=== PATIENT | male | born 1935 | race Caucasian/White ===

== ENCOUNTER → 2017-10-08 13:13 | Outpatient (CLI) | payer MEDICARE, SELFPAY ==
--- NOTE | 2017-10-08 13:19 | XR_ITS ---
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 The left hip arthroplasty is more superior than normal with acute angle of the acetabular cup. Lucency is noted along the peripheral aspect of the acetabular cup similar to the previous exam. No acute fracture or dislocation is evident. There is cortical thickening of the acetabular region as well as the superior and inferior pubic rami from previous fractures. No acute fracture or dislocation is evident. IMPRESSION: Status post total hip replacement with chronic changes with healing fracture of the superior pubic ramus and chronic lucency surrounding the left acetabular cup. No acute finding.
--- NOTE | 2017-10-08 13:19 | XR_ITS ---
XR knee LT 4V HISTORY: ITS.REASON: Left knee pain ORDERING PHYSICIAN: Satinder Barriga MD PATIENT AGE: 82 years COMPARISON: 12/28/2014 FINDINGS: Severe osteoarthritic changes are present involving the lateral compartment and patellofemoral joint with decrease in joint space osteosclerosis and osteophyte formation. There are some subcortical cystic changes of the lateral tibial plateau. No fracture or dislocation. IMPRESSION: Severe osteoarthritis of the left knee slightly worse when compared to the previous exam
--- NOTE | 2017-10-08 13:19 | XR_ITS ---
XR knee RT 2V HISTORY: Follow-up knee replacement ITS.REASON: RT TKA 2012 ORDERING PHYSICIAN: Satinder Barriga MD PATIENT AGE: 82 years COMPARISON: 12/28/2014 FINDINGS: Status post total knee arthroplasty which is in good alignment. There is some minimal concavity of the cortex along the distal femur anteriorly likely similar to 12/28/2014. IMPRESSION: Status post total knee arthroplasty with good alignment and no significant change.
== END ==
PROVIDERS: PCP Family Medicine; Visit Provider Orthopaedic Surgery
DX: M25.552 Pain in left hip (principal); M17.12 Unilateral primary osteoarthritis, left knee; Z96.651 Presence of right artificial knee joint
CPT/HCPCS: 73502; 73560; 73564

== ENCOUNTER → 2017-10-30 12:29 | Outpatient (CLI) | payer MEDICARE, SELFPAY ==
--- NOTE | 2017-10-30 12:33 | MR_ITS ---
MR knee LT wo con HISTORY: Left knee pain with swelling ITS.REASON: Possible surgical candidate ORDERING PHYSICIAN: Satinder Barriga MD PATIENT AGE: 82 years COMPARISON: 10/08/2017 TECHNIQUE: Standard multiplanar multiecho sequences are performed without contrast. FINDINGS: Injury cruciate ligament is not identified in normal position consistent with tear of the ACL. T2 hypointensity is present along the posterior aspect of the lateral compartment medially and may be related to part of the torn ACL. The PCL is intact. The collateral ligaments have an unremarkable appearance. The patellar tendon and quadriceps tendon appear intact. A nondisplaced horizontal tear involves the posterior horn of the medial meniscus. Complex abnormal signal intensity involves the anterior and posterior horn of the medial meniscus consistent with complex tear. There is an area of decreased T1 and T2 signal along the central aspect of the lateral compartment. This could be related to a flipped meniscus or part of the torn ACL. There are severe osteoarthritic changes of the lateral compartment and patellofemoral joint with moderate osteophytes at the posterior patella. There is loss of the patellar cartilage. There is a small knee joint effusion with a Chery's cyst also noted measuring 3 cm. Subarticular cystic changes involve the lateral femoral condyle and lateral tibial plateau with decrease T1 and slight increased T2 signal involving the lateral tibial plateau subarticular surface suggesting osteonecrosis. No fracture or dislocation. IMPRESSION: 1. Tear of the ACL. 2. Complex tear of both anterior and posterior horn of the medial meniscus with possible flipped posterior meniscal fragment. 3. Severe osteoarthritis of the lateral compartment and patellofemoral joint with knee joint effusion. 4. Bone marrow edema of the lateral tibial plateau which could be a result of the arthritis versus osteochondrosis
== END ==
PROVIDERS: Family Provider Family Medicine; PCP Family Medicine; Visit Provider Orthopaedic Surgery
DX: M17.12 Unilateral primary osteoarthritis, left knee (principal)
CPT/HCPCS: 73721

== ENCOUNTER 2023-09-26 07:01 | Outpatient (CLI) | payer MEDICARE, SELFPAY ==
--- NOTE | 2023-09-26 07:10 | CT_ITS ---
FINAL REPORT TECHNIQUE: Axial images through the abdomen and pelvis were performed without contrast. This study was performed with techniques to keep radiation doses as low as reasonably achievable, (ALARA). Individualized dose reduction techniques using automated exposure control or adjustment of mA and/or kV according to the patient's size were employed. CLINICAL HISTORY: PELVIC AND ABD PAIN, FINDINGS: ABDOMEN: There is bibasilar atelectasis or scar. The heart size is normal. Limited images of the liver are unremarkable. The patient is status post cholecystectomy. The spleen is normal. No adrenal mass is identified. The aorta is normal in caliber. There is no significant free fluid or adenopathy. There are small bilateral nonobstructing renal stones, largest on the left measures 3 mm. There is no hydronephrosis. There is a large midline abdominal wall hernia containing multiple unobstructed small bowel loops and colon. There are postoperative changes in the right colon. PELVIS: The appendix is not identified. The urinary bladder is unremarkable. There is no significant free fluid or adenopathy. Bilateral hip arthroplasties are identified. IMPRESSION: Large midline abdominal wall hernia containing multiple unobstructed small bowel loops and colon. Bilateral nephrolithiasis. Reviewed, Interpreted and Dictated by Edgardo Allison III, MD Transcribed by Amy Cruz Authenticated and [facility]
== END 2023-09-26 23:59 ==
PROVIDERS: PCP Family Medicine; Visit Provider Family Medicine
DX: R10.30 Lower abdominal pain, unspecified (principal); R10.2 Pelvic and perineal pain
CPT/HCPCS: 74176

== ENCOUNTER 2023-10-13 13:18 | Outpatient (CLI) | payer MEDICARE, SELFPAY ==
[2023-10-13 13:45] LABS: Basophils % 0.5 % (0.1-2.0); Eosinophils # 0.1 K/mm3 (0.0-0.4); Eosinophils % 1.1 % (0.1-12.0); Hematocrit 38.1 % (42.0-52.0); Lymphocytes # 1.2 K/mm3 (0.7-4.5); Lymphocytes % 16.5 % (10-50); Mean Corpuscular HGB Conc 31.4 g/dL (31.8-35.4); Mean Corpuscular Hemoglobin 28.7 pg (27.0-31.2); Mean Corpuscular Volume 91.6 fl (80-94); Mean Platelet Volume 8.3 fl (7.4-10.4); Monocytes # 0.4 K/mm3 (0.1-1.0); Monocytes % 5.3 % (1.7-9.3); Neutrophils # 5.7 K/mm3 (1.8-7.8); Neutrophils % 76.6 % (37.0-80.0); Platelet Count 177 K/mm3 (142-424); Red Blood Count 4.16 M/mm3 (4.60-6.20); Red Cell Distribution Width 14.8 % (11.5-17.5); White Blood Count 7.4 K/mm3 (4.8-10.8)
[2023-10-13 14:05] LABS: Chloride 99 mmol/L (98-107)
[2023-10-13 14:06] LABS: Potassium 4.3 mmoL/L (3.5-5.1); Sodium 134 mmol/L (136-145)
[2023-10-13 14:09] LABS: Anion Gap 6.3 mEq/L (5-15); Blood Urea Nitrogen 21 mg/dl (9-20); Calcium 9.7 mg/dl (8.4-10.2); Carbon Dioxide 33 mmol/L (22.0-30.0); Estimated Glomerular Filt Rate 71 ml/min (>60); GFR (African American) 86 ML/MIN (>60); Glucose 145 mg/dl (74-100)
[2023-10-13 14:18] LABS: NT Pro Brain Natriuretic Pep. 2020 pg/mL (0-450)
== END 2023-10-13 23:59 ==
LOC: LAB.DROPOF 13:19
PROVIDERS: PCP Family Medicine; Visit Provider Family Medicine
DX: I25.10 Atherosclerotic heart disease of native coronary artery without angina pectoris (principal); I50.9 Heart failure, unspecified
CPT/HCPCS: 80048; 83880; 85025

== ENCOUNTER 2023-10-15 20:23 | Inpatient (IN) | payer OTHER, MEDICARE, SELFPAY ==
[2023-10-15] VITALS (10 sets, daily range): BP systolic 138–158; BP diastolic 74–86; PULSE 89–101; RESP 16–18; TEMP 36.9; O2SAT 91–98; BMI 46.7; BMI 45.8
--- NOTE | 2023-10-15 20:05 | PC.NURSE ---
Report from Louann, nurse from [place] who reports 88 M coming in for increased SOA since Saturday. Patient wears 3L/NC and had saturation of 80% with that. Patient was at baseline on Saturday, walking/talking, but today he is so weak he can't even hold a fork. Nurse reports CXR on Saturday showed infiltrates, so he was given 30mg Lasix x3 days. Not better today, so MD at [facility] prescribed Levaquin to start today.
--- NOTE | 2023-10-15 20:23 | XR_ITS ---
PROCEDURE INFORMATION: Exam: XR Chest Exam date and time: 10/15/2023 8:30 PM Age: 88 years old Clinical indication: Patient HX: Severe shortness of breath, hypoxemia. ; Additional info: SOA, hypoxemia TECHNIQUE: Imaging protocol: Radiologic exam of the chest. Views: 1 view. COMPARISON: No relevant prior studies available. FINDINGS: Lungs: Bibasilar patchy parenchymal opacities could reflect infection, atelectasis or scarring. There is mild prominence of the perihilar lung markings which could be related to crowding. Pleural spaces: No large effusion or pneumothorax. Heart/Mediastinum: No evidence of mediastinal widening or cardiac silhouette enlargement; the mediastinum and heart appear within normal limits for contour and size. Bones/joints: No evidence of acute osseous abnormalities within the visualized portions of the thoracic spine and ribs. Osseous structures appear appropriate for patient age. Other findings: There is a low level of inspiration. IMPRESSION: Bibasilar patchy parenchymal opacities could reflect infection, atelectasis or scarring.
--- NOTE | 2023-10-15 20:32 | ECG_ITS ---
APPROVED REPORT Exam: Resting ECG HR:100 bpm ECG Measurements Heart Rate 100 AXES QRSd 153 QRS -43 QT 348 T -21 QTc 405 Conclusion ATRIAL FIBRILLATION WITH RAPID VENTRICULAR RESPONSE LEFT AXIS DEVIATION [QRS AXIS < -30] RIGHT BUNDLE BRANCH BLOCK [120+ ms QRS DURATION, UPRIGHT V1, 40+ ms S IN I/aVL/V4/V5/V6] Electronically signed by : KISHA CAMEJO, 10/15/2023 22:17:53
[2023-10-15 20:38] LABS: Lactate Venous 1.7 mmol/L (0.4-2.0); VBG Base Excess 2.8 mmol/L (-2.4-2.3); VBG HCO3 28.6 mmol/L (23-30); VBG Oxygen Saturation 81.5 % (50-70); VBG PCO2 54.2 mmol/L (35-51); VBG PH 7.34 mmol/L (7.31-7.41); VBG PO2 45.6 mmol/L (28-40); VBG Total CO2 30.2 mmol/L (23-27)
[2023-10-15 20:38] LABS: Basophils % 0.6 % (0.1-2.0); Eosinophils # 0.2 K/mm3 (0.0-0.4); Eosinophils % 3.1 % (0.1-12.0); Hematocrit 39.2 % (42.0-52.0); Hemoglobin 12.4 g/dL (14.1-18.0); Lymphocytes # 1.4 K/mm3 (0.7-4.5); Lymphocytes % 21.3 % (10-50); Mean Corpuscular HGB Conc 31.7 g/dL (31.8-35.4); Mean Corpuscular Hemoglobin 28.9 pg (27.0-31.2); Mean Platelet Volume 8.4 fl (7.4-10.4); Monocytes # 0.4 K/mm3 (0.1-1.0); Monocytes % 5.8 % (1.7-9.3); Neutrophils # 4.5 K/mm3 (1.8-7.8); Neutrophils % 69.3 % (37.0-80.0); Platelet Count 186 K/mm3 (142-424); Red Blood Count 4.31 M/mm3 (4.60-6.20); Red Cell Distribution Width 14.7 % (11.5-17.5); White Blood Count 6.5 K/mm3 (4.8-10.8)
--- NOTE | 2023-10-15 20:47 | ED_ITS ---
Discharge Plan Disposition Patient Disposition: Admitted Clinical Impressions Clinical Impression: Pneumonia, Generalized weakness, Declining functional status Discharge ED Provider: Sukhdev Morales General Chief Complaint: Shortness of Breath/Dyspnea Stated Complaint: Shortness of Air. Weakness Time Seen by Provider: 10/15/23 20:22 Mode of Arrival: EMS Source of Information: EMS Limitations: Physical Limitations Description of Symptoms (Recalled from ER Triage Doc. by RN): 88 M presents via EMS from [place] with worsening c/o of SOA. Patient wears 3L/NC normally, but had o2 saturation of 80% on EMS arrival. Patient arrives on NRB with saturation 95%-97%. Patient is a/o x3. History of Present Illness HPI narrative: This is an 88-year-old male history of hypertension, hyperlipidemia, c/o 3 L nasal cannula CHF, hypothyroidism, A-fib on warfarin presenting with shortness of breath and weakness. Patient has been developing these symptoms over the past 2 or 3 days. Was initially diagnosed with COPD exacerbation, getting worse at half-way, was put on Levaquin with first dose today, but per EMS, patient was so weak he was unable to feed himself, so EMS was called. On EMS arrival, patient was around 80% on his home oxygen. Put on nonrebreather with return to low to mid 90s. Answered questions, alert and oriented. On arrival, patient complaining of shortness of breath, but denies chest pain, nausea or vomiting, fevers or chills, abdominal pain, or any other complaints at this time Please note that above description of symptoms, in this electronic medical record under categorization of recalled from ER triage doctor by RN are reflective of an initial nursing assessment, however, is not reflective of my full history and physical exam that was personally taken and clarified. Consequentially, this preceding description of symptoms, which may include the patient's categorized chief complaint in the EMR, do not reflect my personal clinical impression, and the ultimate description of history of present illness and patient stated complaints should be deferred to this section of the note. Unless stated otherwise or congruent with this section of the note, additional signs, symptoms, or incongruence should be interpreted as inaccurate with my clinical impression. Related Data Home Medications Medication Instructions Recorded Confirmed acetaminophen 500 mg tablet 500 mg PO Q6H PRN CHRONIC PAIN 10/15/23 10/15/23 aripiprazole 2 mg tablet 2 mg PO DAILY 10/15/23 10/15/23 ascorbic acid (vitamin C) 1,000 mg 1 g PO HS 10/15/23 10/15/23 capsule aspirin 81 mg chewable tablet 81 mg PO DAILY 10/15/23 10/15/23 bumetanide 1 mg tablet 1 mg PO DAILY 10/15/23 10/15/23 bupropion HCl 300 mg 24 hr tablet, 300 mg PO DAILY Depression 10/15/23 10/15/23 extended release (Wellbutrin XL) digoxin 125 mcg (0.125 mg) tablet 125 mcg PO DAILY 10/15/23 10/15/23 duloxetine 60 mg capsule,delayed 60 mg PO BID 10/15/23 10/15/23 release esomeprazole magnesium 40 mg 40 mg PO DAILY 10/15/23 10/15/23 capsule,delayed release ferrous sulfate 325 mg (65 mg 325 mg PO DAILY 10/15/23 10/15/23 iron) tablet folic acid 1 mg tablet 1 mg PO DAILY 10/15/23 10/15/23 furosemide 40 mg tablet (Lasix) 40 mg PO DAILY 10/15/23 10/15/23 lactulose 10 gram/15 mL oral 10 g PO BID 10/15/23 10/15/23 solution levofloxacin 500 mg tablet 500 mg PO DAILY 10/15/23 10/15/23 metoprolol tartrate 25 mg tablet 25 mg PO DAILY 10/15/23 10/15/23 morphine 60 mg tablet,extended 60 mg PO Q12H 10/15/23 10/15/23 release oxycodone-acetaminophen 10 mg-325 1 tab PO Q8H PRN CHRONIC PAIN 10/15/23 10/15/23 mg tablet (Percocet) pravastatin 40 mg tablet 40 mg PO HS 10/15/23 10/15/23 ropinirole 0.5 mg tablet 0.5 mg PO HS 10/15/23 10/15/23 silodosin 8 mg capsule 8 mg PO DAILY 10/15/23 10/15/23 tolterodine 2 mg tablet 2 mg PO DAILY 10/15/23 10/15/23 warfarin 4 mg tablet 4 mg PO CONSULT PHARMACY 10/15/23 10/15/23 warfarin 5 mg tablet 5 mg PO CONSULT PHARMACY 10/15/23 10/15/23 Allergies Allergy/AdvReac Type Severity Reaction Status Date / Time penicillin V Allergy Unknown I-RASH Verified 01/29/18 10:59 promethazine Allergy Unknown Verified 01/29/18 10:59 PFSH [facility] Disclaimer: The information contained in this section may have been updated after the patient was seen, as this information can be updated by other users. Medical History (Updated 10/15/23 @ 22:02 by Sukhdev Morales MD) Difficulty in walking, not elsewhere classified Muscle weakness (generalized) Dependence on supplemental oxygen Body mass index [BMI] 45.0-49.9, adult Weakness Restless legs syndrome Major depressive disorder, single episode, unspecified Chronic pain syndrome Obstructive sleep apnea (adult) (pediatric) Unspecified abdominal hernia without obstruction or gangrene Morbid (severe) obesity due to excess calories Anemia, unspecified Chronic obstructive pulmonary disease, unspecified Cardiomegaly Chronic atrial fibrillation, unspecified Atherosclerotic heart disease of [place] coronary artery without angina pectoris Heart failure, unspecified Social History (Updated 10/15/23 @ 21:34 by Riley Rosenthal RN) Smoking Status: Never smoker alcohol intake: never current occupational status: retired Travel in the last 8 weeks: None ROS Obtained: Yes All systems reviewed & no additional complaints except as documented Physical Exam General General appearance: alert, in distress and obese ENT ENT exam: Present mucous membranes dry Neck Neck exam: Present trachea midline and other (Unable to evaluate for JVD given habitus) Chest Chest inspection: Present normal inspection and symmetric chest wall rise; Absent tenderness Respiratory Respiratory exam: Present respiratory distress, wheezes (Diffuse, bilateral. Decreased breath sounds in bilateral lower lung sweeney, left greater than right.), accessory muscle use and other (Eating and); Absent stridor or prolonged expiratory phase Cardiovascular Cardiovascular exam: Present tachycardia and irregular rhythm Abdominal Exam Abdominal exam: Present soft, distention and hernia; Absent tenderness, guarding, rebound or rigidity Extremities Exam Extremities exam: Present edema (With chronic skin changes) Neurological Exam Neurological exam: Present alert, oriented X3 and CN II-XII intact Skin Skin exam: Present warm and dry; Absent cyanosis, diaphoresis or pallor HEART Score HEART Score HEART Score assessment performed?: Yes History (anamnesis): Slightly suspicious ECG: Non-specific disturbance Age: >65 years Risk factors: 3 or more risk factors Troponin: </= normal limit HEART Score: 5 Procedures Limited Ultrasound Indication:: Limited cardiac ultrasound Indication: AMS, shortness of breath Identified cardiac views: -Cardiac parasternal long axis -Cardiac parasternal short axis Findings: -Cardiac activity present -Gross wall motion normal, reduced -Pericardial effusion absent -Right heart strain absent Impression: -Mildly hypodynamic heart. Grossly reduced EF. Images were saved to permanent archive The study was technically adequate CPT: 74503 This study was performed by fl, and I personally interpreted all images/videos. Based on my clinical judgement, these images were adequate and did not necessitate further imaging. Views:: Limited lung ultrasound A focused ultrasound exam of the pleural spaces was performed to evaluate for pneumothorax, pulmonary edema, pleural effusion and/or consolidation. The ultrasound was performed with the following indications, as noted in the H&P: Shortness of breath, hypoxemia, weakness Identified structures: Bilateral thoracic cavities were examined. Findings: Lung sliding: -Present B-lines: -Absent on left -Absent on right Pleural effusion: -Absent bilaterally Consolidation: -Absent left -Absent right Impression: - Pneumothorax absent - Pleural effusion absent - B-lines present bilaterally, less than 2 per rib space. Within normal limits - Consolidation absent Images were saved to permanent archive The study was technically adequate CPT 41931-28 This study was performed by fl, and I personally interpreted all images/videos. Based on my clinical judgement, these images were adequate and did not necessitate further imaging. Critical Care Critical Care Time Critical Care Time: Yes (CV) Attestation: On 10/15/23, the high probability of a clinically significant, sudden or life threatening deterioration of the following system(s) required my full and direct attention, intervention and personal management. The time I documented below is in addition to time spent performing reported procedures but includes the following listed in this critical care notation. Total Time Total Critical Care Time: 45 Medical Decision Making Medical Records Medical records reviewed: Yes I reviewed the patient's medical records. Donovan Inquiry Pt receiving controlled substance: No Donovan was queried for this patient: No Vital Signs Vital Signs: 10/15/23 20:21 10/15/23 20:31 10/15/23 21:00 Temperature 98.5 F Temperature Source Axillary Pulse Rate 97 H 97 H Pulse Rate [Right] 101 H Respiratory Rate 18 18 17 Blood Pressure 151/75 H 145/79 H Blood Pressure [Left Arm] 158/78 H Blood Pressure Mean 98 88 Blood Pressure Mean [Left Arm] 104 Blood Pressure Source Blood Pressure Source [Left Arm] Automatic Cuff Blood Pressure Position Blood Pressure Position [Left Arm] Sitting 02 Sat by Pulse Oximetry 97 98 91 L Oxygen Delivery Method Non-Rebreather Non-Rebreather Nasal Cannula Oxygen Flow Rate (LPM) 15 10/15/23 21:15 10/15/23 21:30 10/15/23 21:45 Temperature Temperature Source Pulse Rate 92 H 90 89 Pulse Rate [Right] Respiratory Rate 16 16 17 Blood Pressure 138/74 138/74 141/83 H Blood Pressure [Left Arm] Blood Pressure Mean 85 87 92 Blood Pressure Mean [Left Arm] Blood Pressure Source Blood Pressure Source [Left Arm] Blood Pressure Position Blood Pressure Position [Left Arm] 02 Sat by Pulse Oximetry 93 L 93 L 97 Oxygen Delivery Method Nasal Cannula Nasal Cannula Aerosol Mask Oxygen Flow Rate (LPM) 10/15/23 21:54 10/15/23 22:10 10/15/23 22:11 Temperature 98.5 F Temperature Source Axillary Pulse Rate 91 H 93 H 93 H Pulse Rate [Right] Respiratory Rate 16 Blood Pressure 141/83 H Blood Pressure [Left Arm] Blood Pressure Mean Blood Pressure Mean [Left Arm] Blood Pressure Source Automatic Cuff Blood Pressure Source [Left Arm] Blood Pressure Position Sitting Blood Pressure Position [Left Arm] 02 Sat by Pulse Oximetry Oxygen Delivery Method Nasal Cannula Oxygen Flow Rate (LPM) 3 Lab Data Labs: Lab Results 10/15/23 20:27: WBC 6.5, RBC 4.31 L, Hgb 12.4 L, Hct 39.2 L, MCV 91.0, MCH 28.9, MCHC 31.7 L, RDW 14.7, Plt Count 186, MPV 8.4, Neut % (Auto) 69.3, Lymph % (Auto) 21.3, Stone % (Auto) 5.8, Eos % (Auto) 3.1, Baso % (Auto) 0.6, Neut # (Auto) 4.5, Lymph # (Auto) 1.4, Stone # (Auto) 0.4, Eos # (Auto) 0.2, Baso # (Auto) 0.0, PT 24.0 H, INR 2.35 H, Sodium 134 L, Potassium 3.8, Chloride 96 L, C arbon Dioxide 33 H, Anion Gap 8.8, BUN 26 H, Creatinine 1.20, Estimated Creat Clear 48, Estimated GFR 57 L, Est GFR ( Amer) 69, Glucose 156 H, Lactate 1.1, Calcium 9.1, Total Bilirubin 1.1, AST 29, ALT 22, Alkaline Phosphatase 101, Troponin I 0.02, NT-Pro-B Natriuret Pep 1510 H, Total Protein 7.3, Albumin 3.8, Globulin 3.5 H, Albumin/Globulin Ratio 1.1 10/15/23 20:36: VBG pH 7.34, VBG pCO2 54.2 H, VBG pO2 45.6 H, VBG HCO3 28.6, VBG Total CO2 30.2 H, VBG O2 Saturation 81.5 H, VBG Base Excess 2.8 H, VBG Lactic Acid 1.7 10/15/23 20:27 10/15/23 20:27 Response Orders (Tests/Meds): ED MEDICATIONS Generic Name Dose Route Start Last Admin Trade Name Freq PRN Reason Stop Dose Admin Acetaminophen 650 mg 10/15/23 21:36 Acetaminophen 325mg Tab PO 11/14/23 21:35 Q4HP PRN Fever or Mild Pain (1-3) Albuterol/Ipratropium 6 ml 10/15/23 21:33 10/15/23 22:10 Ipratropium/Albuterol 3 Ml Neb IH 10/15/23 21:34 6 ml ONCE ONE Administration Vancomycin HCl 2,250 mg/ 500 mls @ 166 mls/hr 10/15/23 20:45 10/15/23 20:56 Sodium Chloride IV 10/15/23 23:45 166 mls/hr ONCE ONE Administration Sodium Chloride 1,000 mls @ 75 mls/hr 10/15/23 21:45 10/15/23 21:53 Sod Chlor 0.9% 1000ml Bag IV 11/14/23 21:44 75 mls/hr .[id number] ANABEL Administration Levofloxacin/Dextrose 750 mg in 150 mls @ 100 mls/hr 10/16/23 09:45 Levofloxacin 750mg/150ml Premix IV 10/26/23 09:44 Q24H ANABEL Miscellaneous 1 each 10/15/23 20:30 10/15/23 20:56 Vancomycin Consult Request NOTAPPLIC 11/14/23 20:29 1 each CONSULT PHARMACY ANABEL Administration Morphine Sulfate 2 mg 10/15/23 21:36 Morphine 2mg/Ml Syringe IV 11/14/23 21:35 Q2HP PRN Severe Pain (7-10) Nicotine 21 mg 10/15/23 21:36 Nicotine 21mg/24hr Patch TD 11/14/23 21:35 DAILYP PRN Nicotine Cravings Ondansetron HCl 4 mg 10/15/23 21:36 Ondansetron 4mg/2ml Vial IV 11/14/23 21:35 Q8HP PRN Nausea Pantoprazole Sodium 40 mg 10/16/23 09:00 Pantoprazole 40mg Tablet PO 11/15/23 08:59 DAILY ANABEL Sodium Chloride 3 ml 10/15/23 21:40 Sodium Chloride 3% 15ml Neb IH 11/14/23 21:39 ONCE PRN INDUCE SPUTUM COLLECTION Discontinued Medications Generic Name Dose Route Start Last Admin Trade Name Freq PRN Reason Stop Dose Admin Furosemide 40 mg 10/15/23 20:23 10/15/23 21:03 Furosemide 40mg/4ml Vial IV 10/15/23 20:24 Not Given ONCE ONE Ceftriaxone Sodium 2 gm/ 100 mls @ 200 mls/hr 10/15/23 20:23 10/15/23 20:55 Sodium Chloride IV 10/15/23 20:52 200 mls/hr ONCE ONE Administration ORDERS Category Date Time Status CXR --portable [XR chest portable] Stat Exams 10/15/23 20:23 Completed POCUS Point of Care (ER Only) Stat Exams 10/15/23 20:25 Taken CBC w/Auto Diff [Complete Blood Count Auto Diff] Stat Lab 10/15/23 20:27 Completed CMP [Comprehensive Metabolic Panel] Stat Lab 10/15/23 20:27 Completed Complete Blood Count Auto Diff AMLAB Lab 10/16/23 06:00 Ordered Comprehensive Metabolic Panel AMLAB Lab 10/16/23 06:00 Ordered INR [Prothrombin Time INR] Stat Lab 10/15/23 20:27 Completed Lactic Acid Stat Lab 10/15/23 20:27 Completed Magnesium AMLAB Lab 10/16/23 06:00 Ordered NT Pro Brain Natriuretic Pep. Stat Lab 10/15/23 20:27 Completed Trop I [Troponin I] Stat Lab 10/15/23 20:27 Completed Troponin I Q3H Lab 10/15/23 23:30 Ordered Troponin I Q3H Lab 10/16/23 02:30 Ordered Blood Culture Stat Micro 10/15/23 20:51 Received VBG [Venous Blood Gas] Stat RT 10/15/23 20:36 Completed MDM Narrative Medical Decision Narrative: This is an 88-year-old male history of hypertension, hyperlipidemia, c/o 3 L nasal cannula CHF, hypothyroidism, A-fib on warfarin presenting with shortness of breath and weakness. Patient has been developing these symptoms over the past 2 or 3 days. Was initially diagnosed with COPD exacerbation, getting worse at half-way, was put on Levaquin with first dose today, but per EMS, patient was so weak he was unable to feed himself, so EMS was called. On EMS arrival, patient was around 80% on his home oxygen. Put on nonrebreather with return to low to mid 90s. Answered questions, alert and oriented. On arrival, patient complaining of shortness of breath, but denies chest pain, nausea or vomiting, fevers or chills, abdominal pain, or any other complaints at this time. It should be noted that this patient has multiple comorbidities, multiple of which are likely complicating care. History was obtained via conversation with patient, EMS. On arrival, patient hemodynamically stable, alert, oriented x4, GCS 15, moving all extremities spontaneously, pupils equal and reactive to light. Full physical exam performed and significant for patient appears to be in mild respiratory distress. Breathing 15 times a minute, but speaking in 2-3 word sentences. Lungs are diffusely wheezy bilaterally, decreased breath sounds in bilateral lower lung sweeney, left greater than right. Cardiac exam with no appreciable murmur, but patient is in A-fib with RVR. Pulses are equal and symmetric. Patient has lower extremity pitting edema with chronic overlying skin changes. Differential includes CHF exacerbation, pneumonia, sepsis, CAD, ACS, NH, pneumothorax, PE, among others. Patient was given empiric vancomycin and ceftriaxone for symptomatic management and correction of underlying abnormalities. Fluids were initially held given hypervolemic appearance. Workup independently interpreted and significant for no leukocytosis, stable hemoglobin and platelets within normal limits. INR 2.35. VBG with normal pH, lactate 1.7. Chemistry largely nonactionable, kidney function within normal limits, glucose 156. LFTs normal. Troponin negative, BNP elevated mildly at 1510, but has been higher in the past. Chest x-ray without obvious pulmonary edema or cardiovascular cause, but does have concern for early developing pneumonia. See radiology read for full review of final results. Independent interpretation of EKG shows A-fib with RVR. 100 bpm. Right bundle branch block with left axis deviation. Patient placed on continuous cardiac monitoring and continuous pulse ox with initial blood pressure 151/75, heart rate 98, saturation 91% on nonrebreather. Heart score 5. Hospital medicine was contacted after discussion with family. Family arrived shortly thereafter, states that patient has had steady functional decline over the past 5 or 6 days, which is acute on chronic for him functional decline since July when he had COVID. States that he has been getting worse and today, was unable to feed himself, which is abnormal for patient. This was due to weakness. Given patient presentation, workup, history, this most likely represents pneumonia and acute on chronic physical deconditioning, likely secondary to mild dehydration and infection. Because patient high risk for clinical decompensation, deemed appropriate for inpatient admission. Results were relayed to patient who voiced understanding and patient was agreeable to inpatient admission and management. Patient was admitted to the hospital for further definitive management.
[2023-10-15 20:48] LABS: Chloride 96 mmol/L (98-107); Potassium 3.8 mmoL/L (3.5-5.1); Sodium 134 mmol/L (136-145)
[2023-10-15 20:50] LABS: Alanine Aminotransferase 22 U/L (12-78); Aspartate Amino Transferase 29 U/L (17-59); Blood Urea Nitrogen 26 mg/dl (9-20); Creatinine Clearance Estimated 48 mL/min (50-200); Estimated Glomerular Filt Rate 57 ml/min (>60); GFR (African American) 69 ML/MIN (>60); Lactic Acid 1.1 mmol/L (0.7-2.1)
[2023-10-15 20:51] LABS: Albumin Level 3.8 g/dl (3.5-5.0); Albumin/Globulin Ratio 1.1 (1.1-1.8); Alkaline Phosphatase 101 U/L (38-126); Anion Gap 8.8 mEq/L (5-15); Bilirubin,Total 1.1 mg/dl (0.2-1.3); Calcium 9.1 mg/dl (8.4-10.2); Carbon Dioxide 33 mmol/L (22.0-30.0); Globulin 3.5 g/dL (1.3-3.2); Glucose 156 mg/dl (74-100); Total Protein,Serum 7.3 g/dl (6.3-8.2)
[2023-10-15] MEDS: CEFTRIAXONE SODIUM 2 GM in 0.9 % SODIUM CHLORIDE 100 ML IV (20:55)
[2023-10-15] MEDS: VANCOMYCIN CONSULT REQUEST 1 EACH NOTAPPLIC (20:56)
[2023-10-15] MEDS: VANCOMYCIN HCL 2,250 MG in 0.9 % SODIUM CHLORIDE 500 ML 166 MG IV (20:56)
[2023-10-15 21:01] LABS: NT Pro Brain Natriuretic Pep. 1510 pg/mL (0-450)
[2023-10-15 21:03] LABS: Troponin I 0.02 ng/ml (0.00-0.034)
--- NOTE | 2023-10-15 21:14 | PC.NURSE ---
family at bedside. rn at bedside hanging iv atb's
[2023-10-15 21:20] LABS: INR 2.35 (0.9-1.1)
--- NOTE | 2023-10-15 21:37 | PC.NURSE ---
House notified for admission
--- NOTE | 2023-10-15 21:38 | PC.NURSE ---
Lynette FRAME [employer]IPPER notified for breathing treatment
--- NOTE | 2023-10-15 21:40 | P.HP_ITS ---
History of Present Illness *Admission Date: 10/15/23 *Reason for visit:: SOB/ Hypoxia *History of present illness: This is an 88-year-old male PMHx hypertension, hyperlipidemia, COPD/CHF 3 L nasal cannula, hypothyroidism, A-fib on warfarin [facility] resident, brought in by EMS with shortness of breath and weakness. Patient has been developing these symptoms over the past 2 or 3 days. Was initially diagnosed with COPD exacerbation, getting worse at care home, was put on Levaquin with first dose today, but per EMS, patient was so weak he was unable to feed himself, so EMS was called. On EMS arrival, patient was around 80% on his home oxygen. Put on nonrebreather with return to low to mid 90s. Answered questions, alert and oriented. On arrival, patient complaining of shortness of breath, but denies chest pain, nausea or vomiting, fevers or chills, abdominal pain, or any other complaints at this time. Admitted for further treatment [facility] Disclaimer: The information contained in this section may have been updated after the patient was seen, as this information can be updated by other users. Medical History (Updated 10/16/23 @ 02:12 by Joaquim Cano APRN) Difficulty in walking, not elsewhere classified Muscle weakness (generalized) Dependence on supplemental oxygen Body mass index [BMI] 45.0-49.9, adult Weakness Restless legs syndrome Major depressive disorder, single episode, unspecified Chronic pain syndrome Obstructive sleep apnea (adult) (pediatric) Unspecified abdominal hernia without obstruction or gangrene Morbid (severe) obesity due to excess calories Anemia, unspecified Chronic obstructive pulmonary disease, unspecified Cardiomegaly Chronic atrial fibrillation, unspecified Atherosclerotic heart disease of [place] coronary artery without angina pectoris Heart failure, unspecified Social History (Updated 10/15/23 @ 23:21 by Nasrin Norwood RN) Smoking Status: Former smoker tobacco type: cigarettes packs per day: 1 smoking status start date: 1950 years smoked: 5 smoking status stop date: 1955 how long ago did patient quit smokin years ago alcohol intake: never current occupational status: retired Travel in the last 8 weeks: None Review of Systems Review of Systems Review of systems:: pertinent systems reviewed and negative unless documented below Meds Home Medications and Allergies Home Medications Medication Instructions Recorded Confirmed Type acetaminophen 500 mg tablet 500 mg PO Q6H PRN CHRONIC PAIN 10/15/23 10/15/23 History aripiprazole 2 mg tablet 2 mg PO DAILY 10/15/23 10/15/23 History ascorbic acid (vitamin C) 1,000 mg 1 g PO HS 10/15/23 10/15/23 History capsule aspirin 81 mg chewable tablet 81 mg PO DAILY 10/15/23 10/15/23 History bumetanide 1 mg tablet 1 mg PO DAILY 10/15/23 10/15/23 History bupropion HCl 300 mg 24 hr tablet, 300 mg PO DAILY 10/15/23 10/15/23 History extended release (Wellbutrin XL) digoxin 125 mcg (0.125 mg) tablet 125 mcg PO DAILY 10/15/23 10/15/23 History duloxetine 60 mg capsule,delayed 60 mg PO BID 10/15/23 10/15/23 History release esomeprazole magnesium 40 mg 40 mg PO DAILY 10/15/23 10/15/23 History capsule,delayed release ferrous sulfate 325 mg (65 mg 325 mg PO DAILY 10/15/23 10/15/23 History iron) tablet folic acid 1 mg tablet 1 mg PO DAILY 10/15/23 10/15/23 History furosemide 40 mg tablet (Lasix) 40 mg PO DAILY 10/15/23 10/15/23 History ipratropium 0.5 mg-albuterol 3 mg 3 ml inhalation Q6H 10/15/23 10/15/23 History (2.5 mg base)/3 mL nebulization soln lactulose 10 gram/15 mL oral 15 ml PO BID 10/15/23 10/16/23 History solution metoprolol succinate 25 mg capsule 25 mg PO DAILY 10/15/23 10/15/23 History sprinkle, ext. release 24 hr morphine 60 mg tablet,extended 60 mg PO Q12H 10/15/23 10/15/23 History release nystatin 100,000 unit/gram topical 1 applic topical BID 10/15/23 10/15/23 History powder oxycodone-acetaminophen 10 mg-325 1 tab PO Q8H PRN CHRONIC PAIN 10/15/23 10/15/23 History mg tablet (Percocet) pravastatin 40 mg tablet 40 mg PO HS 10/15/23 10/15/23 History ropinirole 0.5 mg tablet 0.5 mg PO HS 10/15/23 10/15/23 History silodosin 8 mg capsule 8 mg PO HS 10/15/23 10/15/23 History tolterodine 2 mg tablet 2 mg PO DAILY 10/15/23 10/15/23 History warfarin 4 mg tablet 4 mg PO SUTUTHSA 10/15/23 10/16/23 History warfarin 5 mg tablet 5 mg PO MOWEFR 10/15/23 10/16/23 History levofloxacin 500 mg tablet 500 mg PO DAILY 10/16/23 10/16/23 History mineral oil-hydrophil petrolat 1 applic topical BID 10/16/23 10/16/23 History topical ointment (Aquaphor topical ointment) New Prescriptions to Start Prescriptions: Allergies Allergy/AdvReac Type Severity Reaction Status Date / Time penicillin V Allergy Unknown I-RASH Verified 01/29/18 10:59 promethazine Allergy Unknown Verified 01/29/18 10:59 Exam Data for Last 24 hours Vital signs and Labs for Last 24 Hours: Temp Pulse Resp BP Pulse Ox O2 Del Method O2 Flow Rate 98.5 F 92 H 16 138/74 93 L Nasal Cannula 15 10/15/23 20:21 10/15/23 21:15 10/15/23 21:15 10/15/23 21:15 10/15/23 21:15 10/15/23 21:15 10/15/23 20:21 FiO2 100 10/15/23 20:21 Laboratory Results - last 24 hr 10/15/23 20:27: WBC 6.5, RBC 4.31 L, Hgb 12.4 L, Hct 39.2 L, MCV 91.0, MCH 28.9, MCHC 31.7 L, RDW 14.7, Plt Count 186, MPV 8.4, Neut % (Auto) 69.3, Lymph % (Auto) 21.3, [place] % (Auto) 5.8, Eos % (Auto) 3.1, Baso % (Auto) 0.6, Neut # (Auto) 4.5, Lymph # (Auto) 1.4, [place] # (Auto) 0.4, Eos # (Auto) 0.2, Baso # (Auto) 0.0, PT 24.0 H, INR 2.35 H, Sodium 134 L, Potassium 3.8, Chloride 96 L, Carbon Dioxide 33 H, Anion Gap 8.8, BUN 26 H, Creatinine 1.20, Estimated Creat Clear 48, Estimated GFR 57 L, Est GFR ( Amer) 69, Glucose 156 H, Lactate 1.1, Calcium 9.1, Total Bilirubin 1.1, AST 29, ALT 22, Alkaline Phosphatase 101, Troponin I 0.02, NT-Pro-B Natriuret Pep 1510 H, Total Protein 7.3, Albumin 3.8, Globulin 3.5 H, Albumin/Globulin Ratio 1.1 10/15/23 20:36: VBG pH 7.34, VBG pCO2 54.2 H, VBG pO2 45.6 H, VBG HCO3 28.6, VBG Total CO2 30.2 H, VBG O2 Saturation 81.5 H, VBG Base Excess 2.8 H, VBG Lactic Acid 1.7 I & O for Last 24 hours: Intake & Output 10/12/23 10/13/23 10/14/23 10/15/23 23:59 23:59 23:59 23:59 Weight 156.535 kg Constitutional Constitutional: mild distress, morbidly obese, cooperative and somnolent *Routine HEENT Exam Head: Present normocephalic Eye: Present EOMI and PERRL ENT: Present mucous membranes moist *Routine Neck Exam Neck: Present supple; Absent lymphadenopathy *Routine Respiratory Exam Respiratory: Present CTA bilaterally, prolonged expiratory phase, wheezes, diminished air movement and symmetric chest movement *Routine Cardiovascular Exam Cardiovascular: Present Normal S1, Normal S2, tachycardia and irregular rhythm *Routine Abdominal Exam Abdominal: Present soft, normoactive bowel sounds and hernia; Absent tenderness Comments: impressive anterior abdominal hernia. *Routine Rectal Exam Rectal:: deferred *Routine Genitalia Exam Genitalia:: deferred *Routine Extremities Exam Extremities: Absent cyanosis, clubbing or edema *Routine Skin Exam Skin: Present warm; Absent rash *Routine Neurological Exam Neurological: Present alert and oriented X3 Routine Psychiatric Exam Psychiatric: Present unable to assess H&P: Result Imaging and Cardiology EKG: Status: image reviewed by me, Preliminary report and final report Chest x-ray: Status: image reviewed by me, Preliminary report and final report Assessment and Plan *Assessment and plan (1) Respiratory failure with hypoxia and hypercapnia: Status: Acute Qualifiers: Chronicity: acute on chronic Qualified Code(s): J96.21 - Acute and chronic respiratory failure with hypoxia; J96.22 - Acute and chronic respiratory failure with hypercapnia Category: Medical Code(s): J96.91 - Respiratory failure, unspecified with hypoxia; J96.92 - Respiratory failure, unspecified with hypercapnia (2) Pneumonia: Status: Acute Qualifiers: Laterality: bilateral Lung location: lower lobe of lung Pneumonia type: due to unspecified organism Qualified Code(s): J18.9 - Pneumonia, unspecified organism Category: Medical Code(s): J18.9 - Pneumonia, unspecified organism (3) Heart failure, unspecified: Status: Acute Qualifiers: Heart failure chronicity: acute on chronic Heart failure type: combined systolic and diastolic Qualified Code(s): I50.43 - Acute on chronic combined systolic (congestive) and diastolic (congestive) heart failure Category: Medical Code(s): I50.9 - Heart failure, unspecified (4) Chronic obstructive pulmonary disease, unspecified: Status: Acute Qualifiers: COPD type: unspecified COPD Qualified Code(s): J44.9 - Chronic obstructive pulmonary disease, unspecified Category: Medical Code(s): J44.9 - Chronic obstructive pulmonary disease, unspecified (5) Restless legs syndrome: Status: Acute Category: Medical Code(s): G25.81 - Restless legs syndrome (6) Generalized weakness: Status: Acute Category: Medical Code(s): R53.1 - Weakness (7) Declining functional status: Status: Acute Category: Medical Code(s): R53.81 - Other malaise (8) Morbid (severe) obesity due to excess calories: Status: Acute Category: Medical Code(s): E66.01 - Morbid (severe) obesity due to excess calories Plan 88-year-old male PMHx hypertension, hyperlipidemia, COPD/CHF 3 L nasal cannula, hypothyroidism, A-fib on warfarin [facility] resident, brought in by EMS with shortness of breath and weakness. started on Levaquin PO today. Nursinf facilty was concerning of deterioration of his status and sent patietn for evaluation. On arrival patient was on NRB. EMS reported previously hypoxic. patient was on afib w/ RVR. Initial work up showed no leukocytosis, stable hemoglobin and platelets within normal limits. INR 2.35. VBG with normal pH, lactate 1.7. Chemistry largely nonactionable, kidney function within normal limits, glucose 156. LFTs normal. Troponin negative, BNP elevated mildly at 1510, but has been higher in the past. Chest x-ray without obvious pulmonary edema or cardiovascular cause, but does have concern for early developing pneumonia. Imaging Reviewed. Patient recently was treated oral for COVID. Discussed with the ED. medicine agreed to admit. Plan as follow: -Acute on chronic respiratory failure likely secondary to earlier pneumonia: To rule out CHF exacerbation Chronic COPD Admit patient for medical services. On continuous monitoring for unit protocol Monitor for O2 saturation. Currently on 3 L nasal cannula Started on vancomycin and ceftriaxone first dose given at the ER Will continue with Levaquin Blood culture and sputum pending Monitor for sepsis and organ dysfunction Lasix IV one-time given at the ER. Resume Bumex and furosemide p.o. 40 twice daily Echocardiogram. ER bedside cardiac ultrasound showed significantly reduced EF Repeat labs in the morning. Monitor for electrolyte imbalance -Chronic conditions: Sleep apnea., Restless leg syndrome. Morbidly obese with comorbidities, A-fib on chronic warfarin hypertension, hyperlipidemia Medication reviewed and reconciled. Pharmacy to monitor PT/INR Generalized weakness and declining function: PT OT consult for eval and treatment. SCD for DVT prophylaxis. On warfarin. Protonix for GERD and GI bleed protection Full code Rounded on patient after nurse practitioner. Personally examined and interviewed patient. Agree with exam findings and care plan as documented.
--- NOTE | 2023-10-15 21:48 | PC.NURSE ---
Report to THOMPSON Fajardo. Awaiting transport to come get patient
[2023-10-15] MEDS: 0.9 % SODIUM CHLORIDE 1000ML 1,000 ML 75 ML IV (21:53)
[2023-10-15] MEDS: IPRATROPIUM/ALBUTEROL 3 ML NEB 6 ML IH (22:10)
--- NOTE | 2023-10-15 22:13 | PC.NURSE ---
Notified charge on 2nd floor that transport has not showed up yet.
--- NOTE | 2023-10-15 22:29 | PC.NURSE ---
House notified because transport not arrived for patient. Report called at [phone]
--- NOTE | 2023-10-15 22:35 | PC.NURSE ---
Transport here for patient
[2023-10-16] VITALS (11 sets, daily range): BP systolic 132–161; BP diastolic 71–98; PULSE 72–145; RESP 18–22; TEMP 36.6–36.9; O2SAT 3–94; BMI 45.0
[2023-10-16 00:24] LABS: Troponin I 0.02 ng/ml (0.00-0.034)
[2023-10-16 03:22] LABS: Troponin I 0.03 ng/ml (0.00-0.034)
[2023-10-16] MEDS: MORPHINE 2MG/ML SYRINGE 2 MG IV ×2 (03:52→08:15)
[2023-10-16] MEDS: IPRATROPIUM/ALBUTEROL 3 ML NEB IH ×4 (06:26→23:03)
--- NOTE | 2023-10-16 07:40 | HMH.PHAINT1 ---
Pharmacy Intervention Comments: HOME MEDICATION LIST VERIFIED VIA FACILITY LIST
[2023-10-16 08:21] LABS: Basophils % 0.2 % (0.1-2.0); Eosinophils # 0.1 K/mm3 (0.0-0.4); Eosinophils % 1.3 % (0.1-12.0); Hematocrit 36.9 % (42.0-52.0); Hemoglobin 11.9 g/dL (14.1-18.0); Lymphocytes # 0.7 K/mm3 (0.7-4.5); Lymphocytes % 10.2 % (10-50); Mean Corpuscular HGB Conc 32.1 g/dL (31.8-35.4); Mean Corpuscular Hemoglobin 29.3 pg (27.0-31.2); Mean Corpuscular Volume 91.3 fl (80-94); Mean Platelet Volume 8.2 fl (7.4-10.4); Monocytes # 0.3 K/mm3 (0.1-1.0); Neutrophils # 5.7 K/mm3 (1.8-7.8); Neutrophils % 84.2 % (37.0-80.0); Platelet Count 164 K/mm3 (142-424); Red Blood Count 4.04 M/mm3 (4.60-6.20); Red Cell Distribution Width 14.8 % (11.5-17.5); White Blood Count 6.7 K/mm3 (4.8-10.8)
[2023-10-16 08:36] LABS: Chloride 97 mmol/L (98-107)
[2023-10-16 08:37] LABS: Potassium 3.9 mmoL/L (3.5-5.1); Sodium 132 mmol/L (136-145)
--- NOTE | 2023-10-16 08:37 | SW/DCPLANNER ---
Addendum entered by Gretchen Treviño 10/17/23 14:51: Patient was admitted Hospice inpatient as of 2:30PM today per AD w/ [facility]. Addendum entered by Gretchen Treviño 10/16/23 12:00: Per Dr Patel: patient/family prefer to speak w/ Hospice. Patient information/order has been faxed to [facility] at this time. Original Note: This patient is currently LTC at [facility]. I will continue to follow up w/ Collette at [facility] until patient is medically stable for discharge. Discharge date is unknown at this time.
[2023-10-16 08:39] LABS: Alanine Aminotransferase 21 U/L (12-78); Alkaline Phosphatase 89 U/L (38-126); Aspartate Amino Transferase 27 U/L (17-59); Bilirubin,Total 1.2 mg/dl (0.2-1.3); Blood Urea Nitrogen 24 mg/dl (9-20); Creatinine Clearance Estimated 52 mL/min (50-200); Estimated Glomerular Filt Rate 63 ml/min (>60); GFR (African American) 77 ML/MIN (>60)
[2023-10-16 08:40] LABS: Albumin Level 3.6 g/dl (3.5-5.0); Albumin/Globulin Ratio 1.1 (1.1-1.8); Anion Gap 6.9 mEq/L (5-15); Calcium 8.8 mg/dl (8.4-10.2); Carbon Dioxide 32 mmol/L (22.0-30.0); Globulin 3.3 g/dL (1.3-3.2); Glucose 202 mg/dl (74-100); Magnesium 1.6 mg/dl (1.6-2.3); Total Protein,Serum 6.9 g/dl (6.3-8.2)
--- NOTE | 2023-10-16 10:00 | HMH.OTEV ---
OT Inpatient Evaluation Rehab OT IP Evaluation Start: 10/16/23 02:18 Freq: ONCE Status: Active Protocol: Document 10/16/23 09:55 [place] (Rec: 10/16/23 10:00 [facility] [id number]) Rehab OT IP Assessment Subjective History Pt oriented x 2 on arrival. Pt agreeable to engage in therapy evaluation. Pt admitted on 10/15/23 due to PNA and functional decline. History and physical: This is an 88-year-old male PMHx hypertension, hyperlipidemia, COPD/CHF 3 L nasal cannula, hypothyroidism, A-fib on warfarin [facility] resident, brought in by EMS with shortness of breath and weakness. Patient has been developing these symptoms over the past 2 or 3 days. Was initially diagnosed with COPD exacerbation, getting worse at correction, was put on Levaquin with first dose today , but per EMS, patient was so weak he was unable to feed himself, so EMS was called. On EMS arrival, patient was around 80% on his home oxygen. Put on nonrebreather with return to low to mid 90s. Answered questions, alert and oriented. On arrival, patient complaining of shortness of breath, but denies chest pain, nausea or vomiting, fevers or chills, abdominal pain, or any other complaints at this time. Admitted for further treatment Subjective It is still hard to breathe. Prior to being in the hospital , pt lived at [facility]. Pt claims he normally required assistance with ADLs such as dressing and bathing. He engaged in limited ambulation/ functional transfers and also required assistance with these transfers. Objective Patient Orientation Person,Birthday Right Upper Extremity Gross ROM WFL Left Upper Extremity Gross ROM WFL Bed Mobility bed mobility-scooting,bed mobility - supine/sit Assist Level Maximum x 2 (75% assist) Rehab OT IP prob,goals,plan Problems Date of Evaluation: 10/16/23 OT IP Problems Bed Mobility,Transfers,Balance ,Self care,Safety Rehab Potential Rehab Potential Good Equipment Needs Assistive Devices Rolling / Wheeled Walker Plan OT intervention Plan Bed Mobility,Transfers,Balance ,Self care,Safety,Therapeutic Exercise OT Plan Frequency Daily Duration LOS Discharge Goals Bed Mobility Ability Assistance x1 Sit to Stand Chair Transfer Ability Maximum x 1 (75% assist) Chair Transfer Ability Maximum x 1 (75% assist) Chair Transfer Technique Sit to/from Ambulatory Chair Transfer Assistive Devices Rolling Walker Feeding Ability Assist with Tray Set Up Lower Body Dressing Ability Moderate Assistance Upper Body Dressing Ability Minimal Assistance Bathing Ability Moderate Assistance Performing Toilet Hygiene Ability Moderate Assistance Overall Commode/Toilet Transfer Ability Moderate Assistance Commode/Toilet Transfer Technique Sit to/from Ambulatory Commode/Toilet Transfer Assistive Grab Bars Devices Oral Care Assist Contact Guard Decrease in Endurance Yes Discharge Plan OT Discharge Plan Pt will continue to be seen for OT services while at [facility]. Once medically stable person can return to SNF at [facility]. Pt would benefit from therapy upon returning to SNF. Continued therapy will improve strength, safety, endurance, ADL independence, and functional transfers to reach [facility]. Eval Complexity Eval Charge Codes 15960 - Moderate Complexity PHYSICIAN CERTIFICATION: I certify the specified therapy services for Satinder Beth are required, authorized, and reviewed every 30 days.
[2023-10-16] MEDS: OXYCODONE 10MG W/APAP 325MG TABLET 1 EACH PO ×2 (10:01→14:53)
[2023-10-16] MEDS: FUROSEMIDE 40 MG TABLET PO (10:02)
[2023-10-16] MEDS: WARFARIN 5MG TABLET 5 MG PO (10:02)
[2023-10-16] MEDS: METOPROLOL SUCCINATE XL 25MG TABLET 25 MG PO (10:02)
[2023-10-16] MEDS: buPROPion HCl SR 150MG TAB 150 MG PO ×2 (10:02→20:04)
[2023-10-16] MEDS: ASPIRIN 81MG CHEWABLE TABLET 81 MG PO (10:02)
[2023-10-16] MEDS: DULOXETINE 30MG CAPSULE.DR 60 MG PO ×2 (10:02→20:04)
[2023-10-16] MEDS: DIGOXIN 0.125MG TABLET 125 MCG PO (10:02)
[2023-10-16] MEDS: LEVOFLOXACIN/D5W 750 MG/150 ML 750 MG/150 ML PIGGYBACK 100 MG IV (10:03)
[2023-10-16] MEDS: BUMETANIDE 1 MG TABLET PO (10:03)
[2023-10-16] MEDS: ARIPiprazole 10MG TABLET 2.5 MG PO (10:03)
[2023-10-16] MEDS: MORPHINE 30MG EXTENDED RELEASE TAB 60 MG PO ×2 (10:04→21:19)
[2023-10-16] MEDS: BUMETANIDE 1MG/4ML VIAL 1 MG IV (10:08)
[2023-10-16] MEDS: SENNOSIDES 8.6MG/DOCUSATE 50MG TABLET 1 TAB PO ×2 (10:08→20:04)
[2023-10-16] MEDS: POLYETHYLENE GLYCOL 3350 17 GM PACKET PO (10:09)
--- NOTE | 2023-10-16 10:10 | HMH.PTEV ---
Physical Therapy Evaluation Rehab PT IP Evaluation Start: 10/16/23 02:18 Freq: ONCE Status: Active Protocol: Document 10/16/23 10:04 [facility] (Rec: 10/16/23 10:10 [facility] [id number]) Subjective/History History History H&P: This is an 88-year-old male PMHx hypertension, hyperlipidemia, COPD/CHF 3 L nasal cannula, hypothyroidism, A-fib on warfarin [facility] resident, brought in by EMS with shortness of breath and weakness. Patient has been developing these symptoms over the past 2 or 3 days. Was initially diagnosed with COPD exacerbation, getting worse at correction, was put on Levaquin with first dose today , but per EMS, patient was so weak he was unable to feed himself, so EMS was called. On EMS arrival, patient was around 80% on his home oxygen. Put on nonrebreather with return to low to mid 90s. Answered questions, alert and oriented. On arrival, patient complaining of shortness of breath, but denies chest pain, nausea or vomiting, fevers or chills, abdominal pain, or any other complaints at this time. Admitted for further treatment Subjective Subjective PLOF per pt report: Living at [place]. Required assistance for short amb distances using RW, dressing, and bathing. New diagnosis of cancer in past 12 No months? Rehab PT IP Eval Objective Appearance Patient Behavior Appropriate,Cooperative Patient Orientation Person,Birthday Difficulty following instructions none Speech Pattern Clear Ambulation Patient Able to Ambulate No Balance Ability to Arise Unable Sitting Balance Leans or slides in chair Transfers Bed Transfer Ability Maximum x 2 (75% assist) Rehab PT IP prob,goals,plan Problems Date of Evaluation: 10/16/23 PT IP Problems Bed Mobility,Transfers,Gait, Balance,Self care,Safety Rehab Potential Rehab Potential Fair Plan PT Intervention Plan Bed Mobility,Transfers,Gait, Balance,Safety,Therapeutic Exercise Other Intervention Plan 1-2 times PT Plan Frequency Daily Duration LOS Discharge Goals Bed Transfer Ability Maximum x 1 (75% assist) Sit to Stand Chair Transfer Ability Maximum x 2 (75% assist) Discharge Plan PT Discharge Plan Pt safe to d/c back to [facility] when deemed medically necessary. Pt would benefit from skilled PT while at [facility] to prevent further functional decline and maximize safety with mobility. Eval Complexity Eval Charge Codes 06818 - High Complexity PHYSICIAN CERTIFICATION: I certify the specified therapy services for Satinder [place] Beth are required, authorized, and reviewed every 30 days.
--- NOTE | 2023-10-16 10:25 | P.CONCA_ITS ---
History of Present Illness History of Present Illness Consult date: 10/16/23 Requesting physician: Satinder Patel Consult reason: congestive heart failure Chief complaint: SOA, leg edema Additional Medical History:: 1. Hypertension 2. Hyperlipidemia 3. COPD 4. Hypothyroidism 5. History of atrial fibrillation on chronic warfarin therapy 6. History of major depression 7. Obesity 8. Abdominal hernia 9. Chronic anemia since 2006 with hemoglobin of 11-14 10. Heart failure 11. Mild chronic hyponatremia 12. Abnormal EKG with right bundle branch block and left axis deviation History of present illness: This is an 88-year-old male PMHx hypertension, hyperlipidemia, COPD/CHF 3 L nasal cannula, hypothyroidism, A-fib on warfarin [facility] [place] [facility] [place], brought in by EMS with shortness of breath and weakness. Patient has been developing these symptoms over the past 2 or 3 days. Was initially diagnosed with COPD exacerbation, getting worse at [facility], was put on Levaquin with first dose today, but per EMS, patient was so weak he was unable to feed himself, so EMS was called. On EMS arrival, patient was around 80% on his home oxygen. Put on nonrebreather with return to low to mid 90s. Answered questions, alert and oriented. On arrival, patient complaining of shortness of breath, but denies chest pain, nausea or vomiting, fevers or chills, abdominal pain, or any other complaints at this time. Admitted for further treatment The above per Joaquim Cano APRN Above events confirmed with the patient. Cardiology asked to assess for suspected congestive heart failure. [facility] Disclaimer: The information contained in this section may have been updated after the patient was seen, as this information can be updated by other users. Medical History (Updated 10/16/23 @ 02:12 by Joaquim Cano APRN) Difficulty in walking, not elsewhere classified Muscle weakness (generalized) Dependence on supplemental oxygen Body mass index [BMI] 45.0-49.9, adult Weakness Restless legs syndrome Major depressive disorder, single episode, unspecified Chronic pain syndrome Obstructive sleep apnea (adult) (pediatric) Unspecified abdominal hernia without obstruction or gangrene Morbid (severe) obesity due to excess calories Anemia, unspecified Chronic obstructive pulmonary disease, unspecified Cardiomegaly Chronic atrial fibrillation, unspecified Atherosclerotic heart disease of [place] coronary artery without angina pectoris Heart failure, unspecified Social History (Updated 10/15/23 @ 23:21 by Nasrin Norwood RN) Smoking Status: Former smoker tobacco type: cigarettes packs per day: 1 smoking status start date: 1950 years smoked: 5 smoking status stop date: 1955 how long ago did patient quit smokin years ago alcohol intake: never current occupational status: retired Travel in the last 8 weeks: None Review of Systems Review of Systems Review of systems:: pertinent systems reviewed and negative unless documented below *Cardiovascular Cardiovascular: Denies chest pain, Reports dyspnea, Reports dyspnea on exertion and Reports leg edema *Respiratory Respiratory: Reports dyspnea and Reports dyspnea on exertion Exam Data for Last 24 hours Vital signs and Labs for Last 24 Hours: Temp Pulse Resp BP Pulse Ox O2 Del Method O2 Flow Rate 98.2 F 93 H 18 152/98 H 3 L Nasal Cannula 3 10/16/23 08:00 10/16/23 08:00 10/16/23 08:00 10/16/23 08:00 10/16/23 08:23 10/16/23 08:23 10/16/23 08:00 FiO2 100 10/15/23 20:21 Laboratory Results - last 24 hr 10/15/23 20:27: WBC 6.5, RBC 4.31 L, Hgb 12.4 L, Hct 39.2 L, MCV 91.0, MCH 28.9, MCHC 31.7 L, RDW 14.7, Plt Count 186, MPV 8.4, Neut % (Auto) 69.3, Lymph % (Auto) 21.3, [place] % (Auto) 5.8, Eos % (Auto) 3.1, Baso % (Auto) 0.6, Neut # (Auto) 4.5, Lymph # (Auto) 1.4, [place] # (Auto) 0.4, Eos # (Auto) 0.2, Baso # (Auto) 0.0, PT 24.0 H, INR 2.35 H, Sodium 134 L, Potassium 3.8, Chloride 96 L, Carbon Dioxide 33 H, Anion Gap 8.8, BUN 26 H, Creatinine 1.20, Estimated Creat Clear 48, Estimated GFR 57 L, Est GFR ( Amer) 69, Glucose 156 H, Lactate 1.1, Calcium 9.1, Total Bilirubin 1.1, AST 29, ALT 22, Alkaline Phosphatase 101, Troponin I 0.02, NT-Pro-B Natriuret Pep 1510 H, Total Protein 7.3, Albumin 3.8, Globulin 3.5 H, Albumin/Globulin Ratio 1.1 10/15/23 20:36: VBG pH 7.34, VBG pCO2 54.2 H, VBG pO2 45.6 H, VBG HCO3 28.6, VBG Total CO2 30.2 H, VBG O2 Saturation 81.5 H, VBG Base Excess 2.8 H, VBG Lactic Acid 1.7 10/15/23 23:53: Troponin I 0.02 10/16/23 02:50: Troponin I 0.03 10/16/23 08:05: WBC 6.7, RBC 4.04 L, Hgb 11.9 L, Hct 36.9 L, MCV 91.3, MCH 29.3, MCHC 32.1, RDW 14.8, Plt Count 164, MPV 8.2, Neut % (Auto) 84.2 H, Lymph % (Auto) 10.2, [place] % (Auto) 4.0, Eos % (Auto) 1.3, Baso % (Auto) 0.2, Neut # (A uto) 5.7, Lymph # (Auto) 0.7, [place] # (Auto) 0.3, Eos # (Auto) 0.1, Baso # (Auto) 0.0, Sodium 132 L, Potassium 3.9, Chloride 97 L, Carbon Dioxide 32 H, Anion Gap 6.9, BUN 24 H, Creatinine 1.10, Estimated Creat Clear 52, Estimated GFR 63, Est GFR ( Amer) 77, Glucose 202 H D, Calcium 8.8, Magnesium 1.6, Total Bilirubin 1.2, AST 27, ALT 21, Alkaline Phosphatase 89, Total Protein 6.9, Albumin 3.6, Globulin 3.3 H, Albumin/Globulin Ratio 1.1 I & O for Last 24 hours: Intake & Output 10/13/23 10/14/23 10/15/23 10/16/23 11:59 11:59 11:59 11:59 Intake Total 240 / 240 Output Total 650 / 650 Balance -410 / -410 Weight 332 lb 9.6 oz Constitutional Constitutional: moderate distress and morbidly obese *Routine Respiratory Exam Respiratory: Present rales and stridor; Absent able to speak in complete sentences *Routine Cardiovascular Exam Cardiovascular: Present RRR *Routine Extremities Exam Extremities: Present edema Comments: pitting edema into thighs with chronic stasis changes of calves and feet *Routine Neurological Exam Neurological: Present alert and oriented X3 Meds Home Medications and Allergies Home Medications Medication Instructions Recorded Confirmed Type acetaminophen 500 mg tablet 500 mg PO Q6H PRN CHRONIC PAIN 10/15/23 10/15/23 History aripiprazole 2 mg tablet 2 mg PO DAILY 10/15/23 10/15/23 History ascorbic acid (vitamin C) 1,000 mg 1 g PO HS 10/15/23 10/15/23 History capsule aspirin 81 mg chewable tablet 81 mg PO DAILY 10/15/23 10/15/23 History bumetanide 1 mg tablet 1 mg PO DAILY 10/15/23 10/15/23 History bupropion HCl 300 mg 24 hr tablet, 300 mg PO DAILY 10/15/23 10/15/23 History extended release (Wellbutrin XL) digoxin 125 mcg (0.125 mg) tablet 125 mcg PO DAILY 10/15/23 10/15/23 History duloxetine 60 mg capsule,delayed 60 mg PO BID 10/15/23 10/15/23 History release esomeprazole magnesium 40 mg 40 mg PO DAILY 10/15/23 10/15/23 History capsule,delayed release ferrous sulfate 325 mg (65 mg 325 mg PO DAILY 10/15/23 10/15/23 History iron) tablet folic acid 1 mg tablet 1 mg PO DAILY 10/15/23 10/15/23 History furosemide 40 mg tablet (Lasix) 40 mg PO DAILY 10/15/23 10/15/23 History ipratropium 0.5 mg-albuterol 3 mg 3 ml inhalation Q6H 10/15/23 10/15/23 History (2.5 mg base)/3 mL nebulization soln lactulose 10 gram/15 mL oral 15 ml PO BID 10/15/23 10/16/23 History solution metoprolol succinate 25 mg capsule 25 mg PO DAILY 10/15/23 10/15/23 History sprinkle, ext. release 24 hr morphine 60 mg tablet,extended 60 mg PO Q12H 10/15/23 10/15/23 History release nystatin 100,000 unit/gram topical 1 applic topical BID 10/15/23 10/15/23 History powder oxycodone-acetaminophen 10 mg-325 1 tab PO Q8H PRN CHRONIC PAIN 10/15/23 10/15/23 History mg tablet (Percocet) pravastatin 40 mg tablet 40 mg PO HS 10/15/23 10/15/23 History ropinirole 0.5 mg tablet 0.5 mg PO HS 10/15/23 10/15/23 History silodosin 8 mg capsule 8 mg PO HS 10/15/23 10/15/23 History tolterodine 2 mg tablet 2 mg PO DAILY 10/15/23 10/15/23 History warfarin 4 mg tablet 4 mg PO SUTUTHSA 10/15/23 10/16/23 History warfarin 5 mg tablet 5 mg PO MOWEFR 10/15/23 10/16/23 History levofloxacin 500 mg tablet 500 mg PO DAILY 10/16/23 10/16/23 History mineral oil-hydrophil petrolat 1 applic topical BID 10/16/23 10/16/23 History topical ointment (Aquaphor topical ointment) New Prescriptions to Start Prescriptions: Allergies Allergy/AdvReac Type Severity Reaction Status Date / Time penicillin V Allergy Unknown I-RASH Verified 01/29/18 10:59 promethazine Allergy Unknown Verified 01/29/18 10:59 Assessment and Plan *Assessment and plan (1) Respiratory failure with hypoxia and hypercapnia: Status: Acute Qualifiers: Chronicity: acute on chronic Qualified Code(s): J96.21 - Acute and chronic respiratory failure with hypoxia; J96.22 - Acute and chronic respiratory failure with hypercapnia Category: Medical Code(s): J96.91 - Respiratory failure, unspecified with hypoxia; J96.92 - Respiratory mira lure, unspecified with hypercapnia (2) Body mass index [BMI] 45.0-49.9, adult: Status: Acute Category: Medical Code(s): Z68.42 - Body mass index [BMI] 45.0-49.9, adult (3) Morbid (severe) obesity due to excess calories: Status: Acute Category: Medical Code(s): E66.01 - Morbid (severe) obesity due to excess calories (4) Chronic obstructive pulmonary disease, unspecified: Status: Acute Qualifiers: COPD type: unspecified COPD Qualified Code(s): J44.9 - Chronic obstructive pulmonary disease, unspecified Category: Medical Code(s): J44.9 - Chronic obstructive pulmonary disease, unspecified (5) Heart failure, unspecified: Status: Acute Qualifiers: Heart failure chronicity: acute on chronic Heart failure type: combined systolic and diastolic Qualified Code(s): I50.43 - Acute on chronic combined systolic (congestive) and diastolic (congestive) heart failure Category: Medical Code(s): I50.9 - Heart failure, unspecified (6) Declining functional status: Status: Acute Category: Medical Code(s): R53.81 - Other malaise (7) Generalized weakness: Status: Acute Category: Medical Code(s): R53.1 - Weakness (8) Pneumonia: Status: Acute Qualifiers: Laterality: bilateral Lung location: lower lobe of lung Pneumonia type: due to unspecified organism Qualified Code(s): J18.9 - Pneumonia, unspecified organism Category: Medical Code(s): J18.9 - Pneumonia, unspecified organism (9) Restless legs syndrome: Status: Acute Category: Medical Code(s): G25.81 - Restless legs syndrome Plan 1. Respiratory Failure with hypoxia and hypercarbia -supplemental oxygen -diurese with IV bumex due to elevated BNP -IV Abx 2. Heart failure with elevated BNP of 2020 -IV bumex -check echo -Troponins within normal limits 3. Chronic A. fib with coumadin therapy -INR 2.35 -Continue Coumadin -Abnormal EKG with right bundle branch block and left axis deviation (no old EKG for comparison) 4. Morbid obesity with large abdominal wall hernia -No complaint of abdominal pain 5. Declining functional status/failure to thrive with generalized weakness -Considering hospice 6. Hyperlipidemia -On statin therapy Check echocardiogram Further recommendations to follow
[2023-10-16] MEDS: SODIUM CHLORIDE 3% 15ML NEB 3 ML IH (11:10)
[2023-10-16] MEDS: HYDROMORPHONE 2MG/ML SYRINGE 1 MG IV ×3 (12:40→20:11)
[2023-10-16] MEDS: ONDANSETRON 4MG/2ML VIAL 4 MG IV ×2 (15:47→22:52)
[2023-10-16] MEDS: SODIUM PHOS/BIPHOSPHATE FLEET 133ML ENEMA 133 ML RC (16:41)
--- NOTE | 2023-10-16 18:08 | P.PN_ITS ---
Subjective *Date: 10/16/23 *Time: 18:19 Interval history: On exam, patient appears in mild distress. Complaining of pain. Would like his home meds. Is on high-dose opiates at home for chronic pain. 2 days since his last bowel movement per his report. Stated multiple times, he did not want to continue to go through treatment and just wanted to be comfortable and allowed to . Patient's daughter at bedside on repeat rounds. Discussion with her about goals of care and potential hospice. See advance care planning note for details. Patient on 3 L oxygen this morning. Castro placed for diuresis. Concern for CHF exacerbation. Medical Exam Vital signs and Labs for Last 24 Hours: Vital Signs Temp Pulse Pulse Resp BP BP Pulse Ox 10/16/23 17:00 10/16/23 16:00 90 10/16/23 16:00 98.2 F 89 18 142/71 H 94 L 10/16/23 15:05 10/16/23 12:55 10/16/23 12:00 100 H 10/16/23 11:27 78 19 10/16/23 11:27 77 10/16/23 11:27 80 10/16/23 10:55 10/16/23 09:30 10/16/23 08:23 3 L 10/16/23 08:00 110 H 10/16/23 08:00 98.2 F 93 H 18 152/98 H 93 L 10/16/23 06:28 92 H 10/16/23 06:28 93 H 10/16/23 06:28 90 L 10/16/23 04:00 104 H 10/16/23 04:00 97.9 F 72 18 132/88 90 L 10/15/23 22:58 89 16 146/86 H 91 L 10/15/23 22:11 93 H 10/15/23 22:10 93 H 10/15/23 21:54 98.5 F 91 H 16 141/83 H 10/15/23 21:45 89 17 141/83 H 97 10/15/23 21:30 90 16 138/74 93 L 10/15/23 21:15 92 H 16 138/74 93 L 10/15/23 21:00 97 H 17 145/79 H 91 L 10/15/23 20:31 97 H 18 151/75 H 98 10/15/23 20:21 98.5 F 101 H 18 158/78 H 97 O2 Del Method O2 Flow Rate FiO2 10/16/23 17:00 Room Air 10/16/23 16:00 10/16/23 16:00 Nasal Cannula 10/16/23 15:05 Nasal Cannula 2 10/16/23 12:55 Nasal Cannula 2 10/16/23 12:00 10/16/23 11:27 10/16/23 11:27 10/16/23 11:27 10/16/23 10:55 Nasal Cannula 2 10/16/23 09:30 Nasal Cannula 2 10/16/23 08:23 Nasal Cannula 10/16/23 08:00 10/16/23 08:00 Nasal Cannula 3 10/16/23 06:28 10/16/23 06:28 10/16/23 06:28 Nasal Cannula 3 10/16/23 04:00 10/16/23 04:00 Nasal Cannula 10/15/23 22:58 Nasal Cannula 3 10/15/23 22:11 10/15/23 22:10 10/15/23 21:54 Nasal Cannula 3 10/15/23 21:45 Aerosol Mask 10/15/23 21:30 Nasal Cannula 10/15/23 21:15 Nasal Cannula 10/15/23 21:00 Nasal Cannula 10/15/23 20:31 Non-Rebreather 10/15/23 20:21 Non-Rebreather 15 100 Intake and Output 10/16/23 10/16/23 10/16/23 07:59 15:59 23:59 Intake Total 480 / 600 120 / 600 Output Total 925 / 925 0 / 925 Balance -445 / -325 120 / -325 Intake: Intake, Oral Amount 480 / 600 120 / 600 Output: Output, Urine Amount 925 / 925 0 / 925 Other: Number of Unmeasured Voids 0 0 Weight 150.865 kg Patient Weight 10/16/23 23:59 Weight 150.865 kg Laboratory Results - last 24 hr 10/15/23 20:27: WBC 6.5, RBC 4.31 L, Hgb 12.4 L, Hct 39.2 L, MCV 91.0, MCH 28.9, MCHC 31.7 L, RDW 14.7, Plt Count 186, MPV 8.4, Neut % (Auto) 69.3, Lymph % (Auto) 21.3, [place] % (Auto) 5.8, Eos % (Auto) 3.1, Baso % (Auto) 0.6, Neut # (Auto) 4.5, Lymph # (Auto) 1.4, [place] # (Auto) 0.4, Eos # (Auto) 0.2, Baso # (Auto) 0.0, PT 24.0 H, INR 2.35 H, Sodium 134 L, Potassium 3.8, Chloride 96 L, Carbon Dioxide 33 H, Anion Gap 8.8, BUN 26 H, Creatinine 1.20, Estimated Creat Clear 48, Estimated GFR 57 L, Est GFR ( Amer) 69, Glucose 156 H, Lactate 1.1, Calcium 9.1, Total Bilirubin 1.1, AST 29, ALT 22, Alkaline Phosphatase 101, Troponin I 0.02, NT-Pro-B Natriuret Pep 1510 H, Total Protein 7.3, Albumin 3.8, Globulin 3.5 H, Albumin/Globulin Ratio 1.1 10/15/23 20:36: VBG pH 7.34, VBG pCO2 54.2 H, VBG pO2 45.6 H, VBG HCO3 28.6, VBG Total CO2 30.2 H, VBG O2 Saturation 81.5 H, VBG Base Excess 2.8 H, VBG Lactic Acid 1.7 10/15/23 23:53: Troponin I 0.02 10/16/23 02:50: Troponin I 0.03 10/16/23 08:05: WBC 6.7, RBC 4.04 L, Hgb 11.9 L, Hct 36.9 L, MCV 91.3, MCH 29.3, MCHC 32.1, RDW 14.8, Plt Count 164, MPV 8.2, Neut % (Auto) 84.2 H, Lymph % (A uto) 10.2, [place] % (Auto) 4.0, Eos % (Auto) 1.3, Baso % (Auto) 0.2, Neut # (Auto) 5.7, Lymph # (Auto) 0.7, [place] # (Auto) 0.3, Eos # (Auto) 0.1, Baso # (Auto) 0.0, Sodium 132 L, Potassium 3.9, Chloride 97 L, Carbon Dioxide 32 H, Anion Gap 6.9, BUN 24 H, Creatinine 1.10, Estimated Creat Clear 52, Estimated GFR 63, Est GFR ( Amer) 77, Glucose 202 H D, Calcium 8.8, Magnesium 1.6, Total Bilirubin 1.2, AST 27, ALT 21, Alkaline Phosphatase 89, Total Protein 6.9, Albumin 3.6, Globulin 3.3 H, Albumin/Globulin Ratio 1.1 I & O for Labs for Last 24 Hours: Intake & Output 10/13/23 10/14/23 10/15/23 10/16/23 23:59 23:59 23:59 23:59 Intake Total 0 / 0 600 / 600 Output Total 650 / 650 925 / 925 Balance -650 / -650 -325 / -325 Weight 153.586 kg 150.865 kg Constitutional: Present moderate distress, morbidly obese, chronically ill appearing and cooperative Head: Present atraumatic and normocephalic Neck: Present normal inspection Respiratory: Present accessory muscle use, crackles, distant breath sounds and diminished air movement; Absent wheezes Cardiac: Present Reg Rate and Rhythm GI: Present soft, distention, tenderness and normal bowel sounds Comments:: Large prominent abdominal ventral hernia, reducible. Extremities: Present edema Comment:: [place] edema with chronic stasis dermatitis. Edema up to thighs. Skin: Present intact; Absent erythema Comment:: Darkening of skin bilaterally in lower extremities. Tender to palpation. Neuro: Present Grossly Intact, alert, awake, oriented x 3 and moves all extremities Assessment and Plan *Assessment and plan (1) Respiratory failure with hypoxia and hypercapnia: Status: Acute Qualifiers: Chronicity: acute on chronic Qualified Code(s): J96.21 - Acute and chronic respiratory failure with hypoxia; J96.22 - Acute and chronic respiratory failure with hypercapnia Category: Medical Code(s): J96.91 - Respiratory failure, unspecified with hypoxia; J96.92 - Respiratory failure, unspecified with hypercapnia (2) Pneumonia: Status: Acute Qualifiers: Laterality: bilateral Lung location: lower lobe of lung Pneumonia type: due to unspecified organism Qualified Code(s): J18.9 - Pneumonia, unspecified organism Category: Medical Code(s): J18.9 - Pneumonia, unspecified organism (3) Heart failure, unspecified: Status: Acute Qualifiers: Heart failure chronicity: acute on chronic Heart failure type: combined systolic and diastolic Qualified Code(s): I50.43 - Acute on chronic combined systolic (congestive) and diastolic (congestive) heart failure Category: Medical Code(s): I50.9 - Heart failure, unspecified (4) Chronic obstructive pulmonary disease, unspecified: Status: Acute Qualifiers: COPD type: unspecified COPD Qualified Code(s): J44.9 - Chronic obstructive pulmonary disease, unspecified Category: Medical Code(s): J44.9 - Chronic obstructive pulmonary disease, unspecified (5) Restless legs syndrome: Status: Acute Category: Medical Code(s): G25.81 - Restless legs syndrome (6) Generalized weakness: Status: Acute Category: Medical Code(s): R53.1 - Weakness (7) Declining functional status: Status: Acute Category: Medical Code(s): R53.81 - Other malaise (8) Morbid (severe) obesity due to excess calories: Status: Acute Category: Medical Code(s): E66.01 - Morbid (severe) obesity due to excess calories Plan 88-year-old male PMHx hypertension, hyperlipidemia, COPD/CHF 3 L nasal cannula, hypothyroidism, A-fib on warfarin [facility] [place], brought in by EMS with shortness of breath and weakness. started on Levaquin PO today. Nursinf facilty was concerning of deterioration of his status and sent patietn for evaluation. On arrival patient was on NRB. EMS reported previously hypoxic. patient was on afib w/ RVR. Initial work up showed no leukocytosis, stable hemoglobin and platelets within normal limits. INR 2.35. VBG with normal pH, lactate 1.7. Chemistry largely nonactionable, kidney function within normal limits, glucose 156. LFTs normal. Troponin negative, BNP elevated mildly at 1510 (2 days ago 2019). Chest imaging with bibasilar lateral findings concerning for CHF exacerbation versus pneumonia. Diuresing and continuing antibiotics. Cardiology consulted to assist with care. Continues to require inpatient management. Goals of care discussion with family, will pursue hospice consult today. Problems addressed as follows: -Acute on chronic respiratory failure likely secondary to earlier pneumonia versus CHF exacerbation - Chronic COPD Continue supplemental oxygen, goal sats greater 90%. Currently on 3 L. Concern for pneumonia versus CHF. Echo pending Cardiology consulted, discussed case today. Recommend continuing Bumex daily for negative fluid status. Castro placed for strict I's and O's. Continue IV antibiotics. Received ceftriaxone and vancomycin in the ER. Transitioned to levofloxacin 750 mg daily. Anticipate 7 days of antibiotics. Blood culture and sputum pending Continue Bumex 1 mg IV twice daily Echocardiogram obtained and pending formal read. Concern for diastolic dysfunction. EF preliminarily appears preserved Kidney function normal with BUN 24, creatinine 1.1. White cell count normal at 6. Repeat CBC, CMP, magnesium ordered for the morning. DuoNeb scheduled every 6 hours Atrial fibrillation: Continue warfarin. INR 2.3. Repeat INR ordered for the morning Rate appears controlled, continue metoprolol succinate 25 mg daily. Continue digoxin 125 mcg daily Morbid obesity complicates all aspects of his care Chronic pain syndrome, spinal stenosis: On high-dose morphine extended release 60 mg twice daily and oxycodone in the outpatient setting. Increased oxycodone to 10 mg every 4 hours as needed for severe breakthrough pain. Mood order: Continue Abilify 2mg daily, Wellbutrin 300 mg daily, Cymbalta 60 mg twice daily PT and OT evaluating for weakness Anticoagulated with warfarin Protonix for GERD and GI bleed protection DNR Cardiac diet
--- NOTE | 2023-10-16 18:18 | PC.NURSE ---
Pain reported by patient and prn pain medication given. No relief noted, md aware. New orders given and some relief noted but pain still present per pt. VS stable and patient remained on 2LNC. Castro catheter inserted for end of life care and patient pursuing hospice. Enema given, no bowel movement noted yet, md aware.
--- NOTE | 2023-10-16 18:28 | EXP.EVENT.NO ---
Advance care planning note: Active diagnosis: Heart failure, COPD, progressive decline, morbid obesity, and operable ventral hernia, chronic pain, spinal stenosis, depression The patient's active diagnoses are of sufficient risk that focused discussion on advanced care planning is indicated in order to allow the patient to thoughtfully consider personal goals of care; and, if situations arise that prevent the ability to personally give input, to ensure appropriate representation of their personal desires through documentation or informed surrogate decision makers. Discussion: Persons present and participating in discussion: Patient and daughter Discussion: Discussed initially with patient his goals. He states he does not want to be resuscitated. Signed DNR paperwork. Stating he is tired of trying to treat his condition and is ready to give up. Does not want to live any longer. Expressed interest in hospice. Separate discussion with daughter shortly thereafter about goals of care. Discussed concern for patient's current progressive decline. She recognizes that he is tired of continuing to treat his conditions and just wants to be comfortable. Comfort appears very important to her. Expressed concern about ability to manage his pain given his very high doses of opiate therapy. Talked about the benefits of hospice. She is open to this. Would like to have hospice come see patient. In the meantime, discussed having cardiology evaluate to assist with treatment for heart failure. She agrees with this plan. Time spent: Total time spent [id number] in education and discussion directly related to advance care plannin minutes Satinder Patel 10/16/2023
[2023-10-16] MEDS: PANTOPRAZOLE 40MG TABLET 40 MG PO (20:04)
[2023-10-16] MEDS: PRAVASTATIN 40MG TAB 40 MG PO (20:04)
[2023-10-16] MEDS: NYSTATIN TOPICAL POWDER 30GM TP (20:04)
[2023-10-16] MEDS: ROPINIROLE HCL 0.25 MG TABLET 0.5 MG PO (20:04)
--- NOTE | 2023-10-16 21:40 | CA_ITS ---
APPROVED REPORT EXAM: Comprehensive 2D, Doppler, and color-flow Echocardiogram Server Cashier: Jessica Nava CRT Ht: 6 ft 0 in Wt: 332lbs BSA: 2.64 BP: 141/83 mmHg Indications: Congestive Heart Failure, Atrial Fibrillation, Peripheral Edema, Hyperlipidemia, Hypertension/HDD, home o2 2D Dimensions LA Volume 92.90 mL LA Volume Index 34.30 mL/m2 (M/F) 16-34 M-Mode Dimensions RVDd 3.48 cm (0.9-2.6) LA Diam 6.26 cm (1.9-4.0) LVDd 5.18 cm (3.5-5.7) LVDs 3.27 cm (3.5-5.7) IVSd 1.70 cm (0.6-1.1) PWd 0.68 cm (0.6-1.1) EF (Teich) 66.40% FS 36.90% EDV (Teich) 128.40 mL TAPSE 2.21 (<1.7) ESV (Teich) 43.20 mL LV Diastology E Decel Time 150 (160-240 msec) E/A Ratio 1.89 LAT A' 4.00 cm/s Aortic Valve AO Peak GR. 9.10 mmHg Mitral Valve MV E Max Amrik. 72.0 (40-130 cm/s) MV A Velocity 38.0 (40-130 cm/s) E/A Ratio 1.89 MV PHT 44.0 ms Pulmonary Valve PV Peak Velocity 187.0 (50-150 cm/s) Tricuspid Valve TR P. Velocity 353.00 cm/s RAP Estimate 10.00 mmHg RVSP 60.00 mmHg Left Ventricle The left ventricle is normal size. The left ventricular systolic function is normal. The left ventricular ejection fraction is within the normal range. There is increased LV wall thickness. The septum is asynchronous. Diastolic function is indeterminate. LVEF is 60%. Right Ventricle Right ventricle is mildly dilated. Right ventricle is mildly hypokinetic. Atria Left atrium is moderately dilated. Right atrium is moderately dilated. There is no Doppler evidence of interatrial shunt. Aortic Valve The aortic valve is mildly thickened. There is no aortic valvular stenosis. Trace aortic regurgitation. Mitral Valve The mitral valve is normal in structure. No evidence of mitral valve stenosis. Trace mitral valve regurgitation. Tricuspid Valve The tricuspid valve leaflets are thin and pliable. Mild tricuspid regurgitation. RVSP is 40 mmHg + RA pressure. Pulmonic Valve The pulmonary valve is normal in structure. Trace pulmonic regurgitation. Great Vessels The aortic root is normal in size. The ascending aorta is normal in size. The IVC is not well visualized. Pericardium There is no pericardial effusion. Other Information Study Quality: Fair Conclusion Normal LV systolic function. Mildly dilated RV with mild reduction in RV function. Biatrial dilation. Mild TR. Elevated RVSP 40 mmHg + RA pressure. Electronically signed by : Eleanor Hobson MD 10/20/2023 17:58:45
[2023-10-16] MEDS: GLYCOPYRROLATE 0.2 MG/ML 1ML VIAL 0.200000000000000011 MG IV (22:52)
--- NOTE | 2023-10-16 22:58 | ECG_ITS ---
APPROVED REPORT Exam: Resting ECG HR:159 bpm ECG Measurements Heart Rate 159 AXES QRSd 149 QRS -59 QT 327 T 5 QTc 416 Conclusion ATRIAL FIBRILLATION WITH RAPID VENTRICULAR RESPONSE RIGHT BUNDLE BRANCH BLOCK [120+ ms QRS DURATION, UPRIGHT V1, 40+ ms S IN I/aVL/V4/V5/V6] LEFT ANTERIOR FASCICULAR BLOCK [QRS AXIS <= -45, QR IN I, RS IN II] ST DEPRESSION, CONSIDER SUBENDOCARDIAL INJURY [0.1+ mV ST DEPRESSION] CRITICAL TEST RESULT UNCONFIRMED REPORT Electronically signed by : ALEXIS BIRCH, 10/18/2023 01:55:20
--- NOTE | 2023-10-16 23:27 | PC.NURSE ---
Called Mariaa, patient's daughter and updated on patient's decline. Will keep daughter updated throughout the shift.
[2023-10-17] VITALS (12 sets, daily range): BP systolic 132–146; BP diastolic 87–97; PULSE 88–170; RESP 16–24; TEMP 36.9–37.6; O2SAT 6–92; BMI 44.8
[2023-10-17] MEDS: HYDROMORPHONE 2MG/ML SYRINGE 1 MG IV ×3 (00:05→11:31)
--- NOTE | 2023-10-17 04:29 | PC.NURSE ---
Patient remains alert to name at this time and can continue to answer questions appropriately. Patient is wearing 4L O2 per NC with O2 sats in the high 80's low 90's at times. Patient has required pain medication throughout the night per SEP. Patient's color is dusky. Mouth care has been given Q2H, and patient will take sips of water. Patient refuses to be Q2 turned due to abdominal hernia and not being able to get comfortable. Castro remains in place draining dark marta urine. Daughter Mariaa has been updated twice this shift on patient's status. Patient's HR has ranged from 96-145. Patient continues to be A-fib on monitor. Bed alarm on for safety.
[2023-10-17] MEDS: GLYCOPYRROLATE 0.2 MG/ML 1ML VIAL 0.200000000000000011 MG IV ×3 (05:53→18:54)
[2023-10-17] MEDS: IPRATROPIUM/ALBUTEROL 3 ML NEB IH ×4 (06:20→23:09)
[2023-10-17] MEDS: MORPHINE 2MG/ML SYRINGE 2 MG IV (06:47)
--- NOTE | 2023-10-17 07:06 | PC.NURSE ---
RT placed patient on Venti Mask 15L and 50% this morning. O2 sat has maintained 86-88%.
[2023-10-17] MEDS: METOPROLOL TARTRATE 5MG/5ML VIAL 5 MG IV ×2 (08:00→10:29)
--- NOTE | 2023-10-17 08:32 | EXP.CARD.PN ---
Subjective Subjective Date: 10/17/23 Time: 08:32 Principal diagnosis: HFpEF, Resp Failure Interval history: 88-year-old white male in bed with conversational dyspnea. Complain of mid line pain in abdomen and back with presence of large abdominal hernia and history of spinal stenosis. Patient did have some desaturation overnight requiring Ventimask but currently on 6 L of nasal cannula oxygen. He did develop A-fib overnight with rapid ventricular response which has responded to additional metoprolol this morning with a decrease in heart rate but still around 130 bpm Patient and daughter did discuss DNR status with hospice consult yesterday with plans to proceed in this direction today. Exam Data for Last 24 hours Vital signs and Labs for Last 24 Hours: Temp Pulse Resp BP Pulse Ox O2 Del Method O2 Flow Rate 98.5 F 129 H 24 132/94 H 88 L Nasal Cannula 6 10/17/23 08:00 10/17/23 08:00 10/17/23 08:00 10/17/23 08:00 10/17/23 08:00 10/17/23 08:00 10/17/23 08:00 FiO2 100 10/15/23 20:21 Laboratory Results - last 24 hr 10/16/23 08:05: Sodium 132 L, Potassium 3.9, Chloride 97 L, Carbon Dioxide 32 H, Anion Gap 6.9, BUN 24 H, Creatinine 1.10, Estimated Creat Clear 52, Estimated GFR 63, Est GFR ( Amer) 77, Glucose 202 H D, Calcium 8.8, Magnesium 1.6, Total Bilirubin 1.2, AST 27, ALT 21, Alkaline Phosphatase 89, Total Protein 6.9, Albumin 3.6, Globulin 3.3 H, Albumin/Globulin Ratio 1.1 I & O for Last 24 hours: Intake & Output 10/14/23 10/15/23 10/16/23 10/17/23 11:59 11:59 11:59 11:59 Intake Total 240 / 240 600 / 600 Output Total 1225 / 1225 1300 / 1300 Balance -985 / -985 -700 / -700 Weight 332 lb 9.6 oz 330 lb 11.094 oz Constitutional Constitutional: mild distress *Routine Respiratory Exam Respiratory: Present rhonchi *Routine Cardiovascular Exam Cardiovascular: Present irregularly irregular *Routine Abdominal Exam Comments: Large abdominal wall hernia noted *Routine Extremities Exam Extremities: Present edema Progress Note: A&P Assessment and plan (1) Respiratory failure with hypoxia and hypercapnia: Status: Acute (2) Pneumonia: Status: Acute (3) Heart failure, unspecified: Status: Acute (4) Chronic obstructive pulmonary disease, unspecified: Status: Acute (5) Restless legs syndrome: Status: Acute (6) Generalized weakness: Status: Acute (7) Declining functional status: Status: Acute (8) Morbid (severe) obesity due to excess calories: Status: Acute Assessment and Plan Assessment and Plan for All Diagnoses:: 1. Respiratory Failure with hypoxia and hypercarbia on underlying history of COPD (unknown etiology) -supplemental oxygen -diuresed at least 1.5 liters overnight -IV Abx 2. HFpEF with elevated BNP of 2020 -IV bumex -Echo shows preserved EF (official report pending) -Troponins within normal limits 3. Chronic A. fib with coumadin therapy -INR 2.35 -Continue Coumadin -Abnormal EKG with right bundle branch block and left axis deviation (no old EKG for comparison) -adjust metoprolol for rate control 4. Morbid obesity with large abdominal wall hernia -No complaint of abdominal pain 5. Declining functional status/failure to thrive with generalized weakness -hospice consulted 6. Hyperlipidemia -On statin therapy 7. History of spinal stenosis with chronic opiate use Continue IV diuresis and adjustment of metoprolol for rate control Hospice consulted for comfort measures Nothing further to add Please call if needed.
[2023-10-17] MEDS: METOPROLOL SUCCINATE XL 50MG TABLET 50 MG PO (09:18)
[2023-10-17] MEDS: DIGOXIN 0.125MG TABLET 125 MCG PO (09:22)
[2023-10-17] MEDS: buPROPion HCl SR 150MG TAB 150 MG PO (09:22)
[2023-10-17] MEDS: ARIPiprazole 10MG TABLET 2.5 MG PO (09:22)
[2023-10-17] MEDS: ASPIRIN 81MG CHEWABLE TABLET 81 MG PO (09:22)
[2023-10-17] MEDS: BUMETANIDE 1MG/4ML VIAL 1 MG IV ×2 (09:22→15:46)
[2023-10-17] MEDS: DULOXETINE 30MG CAPSULE.DR 60 MG PO (09:23)
[2023-10-17] MEDS: SENNOSIDES 8.6MG/DOCUSATE 50MG TABLET 1 TAB PO (09:23)
[2023-10-17] MEDS: NYSTATIN TOPICAL POWDER 30GM TP (09:23)
[2023-10-17] MEDS: TOLTERODINE LA 2MG CAP.ER.24H 2 MG PO (09:24)
[2023-10-17] MEDS: MAGNESIUM SULFATE IN WATER 2 GM/50 ML PIGGYBACK IV (10:29)
[2023-10-17] MEDS: MORPHINE 30MG EXTENDED RELEASE TAB 60 MG PO (10:30)
[2023-10-17] MEDS: WARFARIN 2MG TABLET 4 MG PO (10:30)
[2023-10-17] MEDS: LEVOFLOXACIN/D5W 750 MG/150 ML 750 MG/150 ML PIGGYBACK 100 MG IV (11:29)
--- NOTE | 2023-10-17 12:48 | P.PN_ITS ---
Subjective *Date: 10/17/23 *Time: 17:23 Interval history: Mr. Beth had worsening clinical status overnight with increased oxygen requirement necessitating Ventimask at 1 point. In more distress this morning. Family would like to proceed with hospice. Patient cannot complete a sentence without being short of breath. Appears in significant pain. Abdomen more distended. Hospice consulted. Converted into A-fib with RVR overnight. Medical Exam Vital signs and Labs for Last 24 Hours: Vital Signs Temp Pulse Pulse Resp BP Pulse Ox O2 Del Method 10/17/23 11:09 88 10/17/23 11:09 122 H 10/17/23 11:09 90 L Nasal Cannula 10/17/23 11:00 Nasal Cannula 10/17/23 09:22 157 H 10/17/23 09:00 Nasal Cannula 10/17/23 08:00 88 L Nasal Cannula 10/17/23 08:00 98.5 F 129 H 24 132/94 H 88 L Nasal Cannula 10/17/23 06:53 Venturi Mask 10/17/23 06:43 85 L Nasal Cannula 10/17/23 06:20 170 H 10/17/23 06:20 164 H 10/17/23 06:20 87 L Nasal Cannula 10/17/23 05:00 Nasal Cannula 10/17/23 04:00 134 H 10/17/23 03:00 Nasal Cannula 10/17/23 01:00 Nasal Cannula 10/17/23 00:00 149 H 10/17/23 00:00 99.4 F 134 H 22 146/97 H 88 L Room Air 10/16/23 23:03 140 H 10/16/23 23:03 145 H 10/16/23 23:00 Nasal Cannula 10/16/23 21:00 Nasal Cannula 10/16/23 20:00 85 10/16/23 20:00 98.4 F 96 H 22 161/97 H 92 L Nasal Cannula 10/16/23 20:00 Nasal Cannula 10/16/23 18:41 Nasal Cannula 10/16/23 18:35 94 L Nasal Cannula 10/16/23 18:34 86 10/16/23 18:34 92 H 10/16/23 17:00 Room Air 10/16/23 16:00 90 10/16/23 16:00 98.2 F 89 18 142/71 H 94 L Nasal Cannula 10/16/23 15:05 Nasal Cannula 10/16/23 12:55 Nasal Cannula O2 Flow Rate 10/17/23 11:09 10/17/23 11:09 10/17/23 11:09 6 10/17/23 11:00 6 10/17/23 09:22 10/17/23 09:00 6 10/17/23 08:00 6 10/17/23 08:00 6 10/17/23 06:53 15 10/17/23 06:43 6 10/17/23 06:20 10/17/23 06:20 10/17/23 06:20 5 10/17/23 05:00 4 10/17/23 04:00 10/17/23 03:00 4 10/17/23 01:00 4 10/17/23 00:00 10/17/23 00:00 4 10/16/23 23:03 10/16/23 23:03 10/16/23 23:00 3 10/16/23 21:00 3 10/16/23 20:00 10/16/23 20:00 2 10/16/23 20:00 3 10/16/23 18:41 2 10/16/23 18:35 2 10/16/23 18:34 10/16/23 18:34 10/16/23 17:00 10/16/23 16:00 10/16/23 16:00 10/16/23 15:05 2 10/16/23 12:55 2 Intake and Output 10/16/23 10/17/23 10/17/23 23:59 07:59 15:59 Intake Total 360 / 840 Output Total 250 / 1875 700 / 700 Balance 110 / -1035 -700 / -700 Intake: Intake, Oral Amount 360 / 840 Output: Output, Urine Amount 250 / 1175 Output, Urine Amount (Catheter) 700 / 700 Castro 700 / 700 Other: Number of Unmeasured Voids 1 Weight 150 kg 150 kg Patient Weight 10/17/23 23:59 Weight 150 kg I & O for Labs for Last 24 Hours: Intake & Output 10/14/23 10/15/23 10/16/23 10/17/23 23:59 23:59 23:59 23:59 Intake Total 0 / 0 840 / 840 Output Total 650 / 650 1175 / 1875 700 / 700 Balance -650 / -650 -335 / -1035 -700 / -700 Weight 153.586 kg 150.865 kg 150 kg Constitutional: Present moderate distress, morbidly obese, chronically ill appearing and cooperative Head: Present atraumatic and normocephalic Neck: Present normal inspection Respiratory: Present accessory muscle use, crackles, distant breath sounds and diminished air movement; Absent wheezes Cardiac: Present Tachycardia Comment:: Irregularly irregular GI: Present soft, distention, tenderness and normal bowel sounds Comments:: Large prominent abdominal ventral hernia, reducible. Extremities: Present edema Comment:: Arden edema with chronic stasis dermatitis. Edema up to thighs. Skin: Present intact; Absent erythema Comment:: Darkening of skin bilaterally in lower extremities. Tender to palpation. Neuro: Present Grossly Intact, alert, awake, oriented x 3 and moves all extremities Assessment and Plan *Assessment and plan (1) Respiratory failure with hypoxia and hypercapnia: Status: Acute Qualifiers: Chronicity: acute on chronic Qualified Code(s): J96.21 - Acute and chronic respiratory failure with hypoxia; J96.22 - Acute and chronic respiratory failure with hypercapnia Category: Medical Code(s): J96.91 - Respiratory failure, unspecified with hypoxia; J96.92 - Respiratory failure, unspecified with hypercapnia (2) Pneumonia: Status: Acute Qualifiers: Laterality: bilateral Lung location: lower lobe of lung Pneumonia type: due to unspecified organism Qualified Code(s): J18.9 - Pneumonia, unspecified organism Category: Medical Code(s): J18.9 - Pneumonia, unspecified organism (3) Heart failure, unspecified: Status: Acute Qualifiers: Heart failure chronicity: acute on chronic Heart failure type: combined systolic and diastolic Qualified Code(s): I50.43 - Acute on chronic combined systolic (congestive) and diastolic (congestive) heart failure Category: Medical Code(s): I50.9 - Heart failure, unspecified (4) Chronic obstructive pulmonary disease, unspecified: Status: Acute Qualifiers: COPD type: unspecified COPD Qualified Code(s): J44.9 - Chronic obstructive pulmonary disease, unspecified Category: Medical Code(s): J44.9 - Chronic obstructive pulmonary disease, unspecified (5) Restless legs syndrome: Status: Acute Category: Medical Code(s): G25.81 - Restless legs syndrome (6) Generalized weakness: Status: Acute Category: Medical Code(s): R53.1 - Weakness (7) Declining functional status: Status: Acute Category: Medical Code(s): R53.81 - Other malaise (8) Morbid (severe) obesity due to excess calories: Status: Acute Category: Medical Code(s): E66.01 - Morbid (severe) obesity due to excess calories (9) Atrial fibrillation with RVR: Status: Acute Category: Medical Code(s): I48.91 - Unspecified atrial fibrillation Plan 88-year-old male PMHx hypertension, hyperlipidemia, COPD/CHF 3 L nasal cannula, hypothyroidism, A-fib on warfarin [facility] [place] resident, brought in by EMS with shortness of breath and weakness. started on Levaquin PO today. Nursinf facilty was concerning of deterioration of his status and sent patietn for evaluation. On arrival patient was on NRB. EMS reported previously hypoxic. patient was on afib w/ RVR. Initial work up showed no leukocytosis, stable hemoglobin and platelets within normal limits. INR 2.35. VBG with normal pH, lactate 1.7. Chemistry largely nonactionable, kidney function within normal monzon its, glucose 156. LFTs normal. Troponin negative, BNP elevated mildly at 1510 (2 days ago 2019). Chest imaging with bibasilar lateral findings concerning for CHF exacerbation versus pneumonia. Initially treated with antibiotics and diuresis. Cardiology was consulted. Discussed adjustments to regimen for A- fib. In light of patient's progressive decline however, family transitioning to hospice care today. Comfort measures in place. Continues to require inpatient management for palliative care. Problems addressed as follows: -Acute on chronic respiratory failure likely secondary to earlier pneumonia versus CHF exacerbation - Chronic COPD -A-fib with RVR Given patient's progressive decline, family has elected to transition to hospice care today. Will de-escalate antibiotics and chronic medications. Increase pain control and symptomatic control for comfort measures as follows: Transition to oral Roxanol 20 mg every [address] of extended release morphine tablet as he cannot swallow tablets at this time. Increase Dilaudid 2 mg every 2 hours as needed Glycopyrrolate 0.2 mg every 6 hours scheduled Will continue Bumex 1 mg twice daily to assist with volume status for improvement in shortness of breath given patient's gurgling and rhonchi. Ativan 0.5 mg every 4 hours as needed for anxiety DuoNeb scheduled every 6 hours All of the medications discontinued DNR.
--- NOTE | 2023-10-17 14:10 | PC.NURSE ---
RESP CARE NOTE: Pt NT suctioned per Dr Patel request. Copious amounts of cream colored sputum removed without complications.
[2023-10-17] MEDS: HYDROMORPHONE 2MG/ML SYRINGE 2 MG IV ×5 (14:27→22:58)
--- NOTE | 2023-10-17 15:15 | PC.NURSE ---
Current Medications Acetaminophen (Acetaminophen 325mg Tab) 650 mg PO Q4HP PRN PRN Reason: Fever or Mild Pain (1-3) Stop: 11/14/23 21:35 Albuterol/Ipratropium (Ipratropium/Albuterol 3 Ml Neb) 3 ml IH Q6RT [facility] Stop: 11/15/23 05:59 Last Admin: 10/17/23 11:09 Dose: 3 ml Aripiprazole (Aripiprazole 10mg Tablet) 2.5 mg PO DAILY [facility] Stop: 11/15/23 08:59 Last Admin: 10/17/23 09:22 Dose: 2.5 mg Bumetanide (Bumetanide 1mg/4ml Vial) 1 mg IV BIDL [facility] Stop: 11/16/23 08:59 Last Admin: 10/17/23 09:22 Dose: 1 mg Digoxin (Digoxin 0.125mg Tablet) 125 mcg PO DAILY [facility] Stop: 11/15/23 08:59 Last Admin: 10/17/23 09:22 Dose: 125 mcg Duloxetine HCl (Duloxetine 30mg Capsule.Dr) 60 mg PO BID [facility] Stop: 11/15/23 08:59 Last Admin: 10/17/23 09:23 Dose: 60 mg Glycopyrrolate (Glycopyrrolate 0.2 Mg/Ml 1ml Vial) 0.2 mg IV Q6H [facility] Stop: 11/16/23 12:59 Last Admin: 10/17/23 13:21 Dose: 0.2 mg Hydromorphone HCl (Hydromorphone 2mg/Ml Syringe) 2 mg IV Q2HP PRN PRN Reason: Severe Pain (7-10) Stop: 11/16/23 11:32 Last Admin: 10/17/23 14:27 Dose: 2 mg Sodium Chloride (Sod Chlor 0.9% 1000ml Bag) 1,000 mls @ 75 mls/hr IV .[id number] [facility] Stop: 11/14/23 21:44 Last Admin: 10/17/23 14:49 Dose: Not Given Lorazepam (Lorazepam 2mg/Ml Vial) 0.5 mg IV Q6HP PRN PRN Reason: Agitation Stop: 11/16/23 12:49 Morphine Sulfate (Morphine 30mg Extended Release Tab) 60 mg PO Q12H [facility] Stop: 11/15/23 10:14 Last Admin: 10/17/23 10:30 Dose: 60 mg Ondansetron HCl (Ondansetron 4mg/2ml Vial) 4 mg IV Q8HP PRN PRN Reason: Nausea Stop: 11/14/23 21:35 Last Admin: 10/16/23 22:52 Dose: 4 mg Oxycodone/Acetaminophen (Oxycodone 10mg W/Apap 325mg Tablet) 1 each PO Q4HP PRN PRN Reason: Severe Pain (7-10) Stop: 11/15/23 14:54 Polyethylene Glycol (Polyethylene Glycol 3350 17 Gm Packet) 17 gm PO DAILY [facility] Stop: 11/15/23 09:59 Last Admin: 10/17/23 09:23 Dose: Not Given Senna/Docusate Sodium (Sennosides 8.6mg/Docusate 50mg Tablet) 1 tab PO BID [facility] Stop: 11/15/23 09:59 Last Admin: 10/17/23 09:23 Dose: 1 tab Sodium Chloride (Sodium Chloride 3% 15ml Neb) 3 ml IH ONCE PRN PRN Reason: INDUCE SPUTUM COLLECTION Stop: 11/14/23 21:39 Last Admin: 10/16/23 11:10 Dose: 3 ml Sodium Chloride (Sodium Chloride 0.9% 10ml Flush Syringe) 10 ml IV NEEDED PRN PRN Reason: Maintain IV Site Stop: 11/15/23 10:49 Sodium Chloride (Sodium Chloride 0.9% 10ml Vial) 10 ml IV NEEDED PRN PRN Reason: to Dilute Lorazepam inj Stop: 11/16/23 12:49
--- NOTE | 2023-10-17 17:13 | PC.NURSE ---
AT BEGINNING OF SHIFT, PT WAS ABLE TO TELL ME HIS NAME AND BIRTHDAY EXCEPT FOR THE YEAR. THE DAY HAS WENT ON, PT HAS BECOME UNRESPONSIVE TO VOICE AND EYES ARE NOW GLAZED OVER. PT RECEIVED ULTRASOUND GUIDED IV TODAY, TOLERATED WELL. F/C PRESENT DRAINING DARK SUJATA URINE WITH SEDIMENT PRESENT. PT DID HAVE A LARGE BM TODAY, CLEANED AND BATH PROVIDED. PT TOLERATED MOVEMENT WELL. FAMILY DOES NOT WANT PT TURNED UNLESS NEEDED OTHERWISE. PT WAS ALSO DEEP SUCTIONED THIS SHIFT PER RESPIRATORY. PT DAUGHTER STATES SHE DOES NOT WANT THIS PERFORMED AGAIN. PT REMAINS ON 6LNC, O2 SAT HIGH 80-LOW 90S. AUDIBLE RHONCHI NOTED. HOSPICE SAW PT TODAY, ADMITTED INPATIENT. MEDICATIONS ADJUSTED PER MD. PRN AND SCHEDULED MEDS SEEM TO BE KEEPING PT COMFORTABLE. ORAL CARE BEING PROVIDED AT LEAST Q2H. COURTESY CART AT BEDSIDE. NO NEEDS OR C/O NOTED AT THIS TIME.
[2023-10-17] MEDS: MORPHINE 20MG/ML 1ML ORAL SOLUTION 20 MG SL ×2 (20:07→23:57)
[2023-10-18] VITALS (9 sets, daily range): BP systolic 119–127; BP diastolic 55–75; PULSE 90–123; RESP 19–21; TEMP 37.7–38.2; O2SAT 86–94; BMI 44.8
[2023-10-18] MEDS: HYDROMORPHONE 2MG/ML SYRINGE 2 MG IV ×4 (01:04→07:03)
[2023-10-18] MEDS: GLYCOPYRROLATE 0.2 MG/ML 1ML VIAL 0.200000000000000011 MG IV ×8 (01:05→22:57)
[2023-10-18] MEDS: MORPHINE 20MG/ML 1ML ORAL SOLUTION 20 MG SL ×2 (04:02→09:00)
--- NOTE | 2023-10-18 06:10 | PC.NURSE ---
Pt has been alert to self at times this shift. Pt wants frequent sips of water. Pt has recieved pain medications per MAR Q2 and Q4 this shift for severe pain. Pt has rested well this shift and denies other needs. Pt breathing remains agonal. Pt daughter has called twice this shift for update on pt.
[2023-10-18] MEDS: IPRATROPIUM/ALBUTEROL 3 ML NEB IH ×4 (06:48→23:12)
--- NOTE | 2023-10-18 07:29 | P.PN_ITS ---
Subjective *Date: 10/18/23 *Time: 14:51 Interval history: More comfortable on exam. Patient asking for water. Labored breathing on 6 L. Medical Exam Vital signs and Labs for Last 24 Hours: Vital Signs Temp Pulse Pulse Resp BP Pulse Ox O2 Del Method 10/18/23 07:00 Nasal Cannula 10/18/23 06:49 118 H 10/18/23 06:49 123 H 10/18/23 06:49 89 L Nasal Cannula 10/18/23 05:00 Nasal Cannula 10/18/23 04:00 100 H 10/18/23 03:00 Nasal Cannula 10/18/23 01:00 Nasal Cannula 10/18/23 00:00 90 10/17/23 23:10 95 H 10/17/23 23:10 95 H 10/17/23 23:00 Nasal Cannula 10/17/23 21:00 Nasal Cannula 10/17/23 20:00 90 10/17/23 20:00 99.7 F H 99 H 16 144/87 H 92 L Room Air 10/17/23 19:50 Nasal Cannula 10/17/23 18:44 Nasal Cannula 10/17/23 18:08 6 L 10/17/23 17:00 Nasal Cannula 10/17/23 16:00 95 H 10/17/23 14:43 Nasal Cannula 10/17/23 13:00 Nasal Cannula 10/17/23 12:00 120 H 10/17/23 11:09 88 10/17/23 11:09 122 H 10/17/23 11:09 90 L Nasal Cannula 10/17/23 11:00 Nasal Cannula 10/17/23 09:22 157 H 10/17/23 09:00 Nasal Cannula 10/17/23 08:00 88 L Nasal Cannula 10/17/23 08:00 98.5 F 129 H 24 132/94 H 88 L Nasal Cannula O2 Flow Rate 10/18/23 07:00 6 10/18/23 06:49 10/18/23 06:49 10/18/23 06:49 6 10/18/23 05:00 6 10/18/23 04:00 10/18/23 03:00 6 10/18/23 01:00 6 10/18/23 00:00 10/17/23 23:10 10/17/23 23:10 10/17/23 23:00 6 10/17/23 21:00 6 10/17/23 20:00 10/17/23 20:00 10/17/23 19:50 6 10/17/23 18:44 6 10/17/23 18:08 10/17/23 17:00 6 10/17/23 16:00 10/17/23 14:43 6 10/17/23 13:00 6 10/17/23 12:00 10/17/23 11:09 10/17/23 11:09 10/17/23 11:09 6 10/17/23 11:00 6 10/17/23 09:22 10/17/23 09:00 6 10/17/23 08:00 6 10/17/23 08:00 6 Intake and Output 10/17/23 10/17/23 10/18/23 15:59 23:59 07:59 Intake Total 0 / 0 Output Total 0 / 700 675 / 675 Balance 0 / -700 -675 / -675 Intake: Intake, Oral Amount 0 / 0 Output: Output, Urine Amount 0 / 0 675 / 675 Other: Number of Unmeasured Voids 0 0 Number of Bowel Movements 1 Weight 150 kg 150 kg Patient Weight 10/18/23 23:59 Weight 150 kg I & O for Labs for Last 24 Hours: Intake & Output 10/15/23 10/16/23 10/17/23 10/18/23 23:59 23:59 23:59 23:59 Intake Total 0 / 0 840 / 840 0 / 0 Output Total 650 / 650 1175 / 1875 700 / 700 675 / 675 Balance -650 / -650 -335 / -1035 -700 / -700 -675 / -675 Weight 153.586 kg 150.865 kg 150 kg 150 kg Constitutional: Present mild distress, morbidly obese, chronically ill appearing and cooperative Head: Present atraumatic and normocephalic Neck: Present normal inspection Respiratory: Present accessory muscle use, rhonchi, crackles, distant breath sounds and diminished air movement; Absent wheezes Cardiac: Present Tachycardia Comment:: Irregularly irregular GI: Present soft, distention, tenderness and normal bowel sounds Comments:: Large prominent abdominal ventral hernia, reducible. Extremities: Present edema Comment:: [place] edema with chronic stasis dermatitis. Edema up to thighs. Skin: Present intact; Absent erythema Comment:: Darkening of skin bilaterally in lower extremities. Tender to palpation. Neuro: Present Grossly Intact, alert, awake and moves all extremities Assessment and Plan *Assessment and plan (1) Respiratory failure with hypoxia and hypercapnia: Status: Acute Qualifiers: Chronicity: acute on chronic Qualified Code(s): J96.21 - Acute and chronic respiratory failure with hypoxia; J96.22 - Acute and chronic respiratory failure with hypercapnia Category: Medical Code(s): J96.91 - Respiratory failure, unspecified with hypoxia; J96.92 - Respiratory failure, unspecified with hypercapnia (2) Pneumonia: Status: Acute Qualifiers: Laterality: bilateral Lung location: lower lobe of lung Pneumonia type: due to unspecified organism Qualified Code(s): J18.9 - Pneumonia, unspecified organism Category: Medical Code(s): J18.9 - Pneumonia, unspecified organism (3) Heart failure, unspecified: Status: Acute Qualifiers: Heart failure chronicity: acute on chronic Heart failure type: combined systolic and diastolic Qualified Code(s): I50.43 - Acute on chronic combined systolic (congestive) and diastolic (congestive) heart failure Category: Medical Code(s): I50.9 - Heart failure, unspecified (4) Chronic obstructive pulmonary disease, unspecified: Status: Acute Qualifiers: COPD type: unspecified COPD Qualified Code(s): J44.9 - Chronic obstructive pulmonary disease, unspecified Category: Medical Code(s): J44.9 - Chronic obstructive pulmonary disease, unspecified (5) Restless legs syndrome: Status: Acute Category: Medical Code(s): G25.81 - Restless legs syndrome (6) Generalized weakness: Status: Acute Category: Medical Code(s): R53.1 - Weakness (7) Declining functional status: Status: Acute Category: Medical Code(s): R53.81 - Other malaise (8) Morbid (severe) obesity due to excess calories: Status: Acute Category: Medical Code(s): E66.01 - Morbid (severe) obesity due to excess calories (9) Atrial fibrillation with RVR: Status: Acute Category: Medical Code(s): I48.91 - Unspecified atrial fibrillation Plan 88-year-old male PMHx hypertension, hyperlipidemia, COPD/CHF 3 L nasal cannula, hypothyroidism, A-fib on warfarin [facility] [place] with shortness of breath and weakness. started on Levaquin PO today. Nursinf facilty was concerning of deterioration of his status and sent patietn for evaluation. On arrival patient was on NRB. EMS reported previously hypoxic. patient was on afib w/ RVR. Initial work up showed no leukocytosis, stable hemoglobin and platelets within normal limits. INR 2.35. VBG with normal pH, lactate 1.7. Chemistry largely nonactionable, kidney function within normal limits, glucose 156. LFTs normal. Troponin negative, BNP elevated mildly at 1510 (2 days ago 2019). Chest imaging with bibasilar lateral findings concerning for CHF exacerbation versus pneumonia. Initially treated with a ntibiotics and diuresis. Cardiology was consulted. Discussed adjustments to regimen for A-fib. In light of patient's progressive decline however, family transitioned to hospice care on 10/17/2023. Continuing comfort care with medications for pain and agitation. imminent. Hospice assisting. Continues to require inpatient management for palliative care. Problems addressed as follows: -Acute on chronic respiratory failure likely secondary to earlier pneumonia versus CHF exacerbation - Chronic COPD -A-fib with RVR Given patient's progressive decline, family has elected to transition to hospice care 10/17. Continue comfort meds as follows: -Increase oral Roxanol to 25 mg every 4 hours scheduled - Transition to scheduled Dilaudid 1 mgevery 4 hours interspersed between morphine doses -Increase glycopyrrolate 0.2 mg to every 2 hours scheduled Will continue Bumex 1 mg twice daily to assist with volume status for improvement in shortness of breath given patient's gurgling and rhonchi. Ativan 0.5 mg every 4 hours as needed for anxiety DuoNeb scheduled every 6 hours DNR.
[2023-10-18] MEDS: BUMETANIDE 1MG/4ML VIAL 1 MG IV ×2 (09:01→15:58)
[2023-10-18] MEDS: MORPHINE 20MG/ML 1ML ORAL SOLUTION 25 MG SL ×3 (12:50→19:57)
[2023-10-18] MEDS: ONDANSETRON 4MG/2ML VIAL 4 MG IV (12:51)
[2023-10-18] MEDS: HYDROMORPHONE 2MG/ML SYRINGE 1 MG IV (18:07)
--- NOTE | 2023-10-18 19:06 | PC.NURSE ---
patient is oriented x4, morphine given around the clock per MAR, patient only medicated with PRN medication for breakthrough pain once during my shift. remains on 6L, pt has been talkative this afternoon and requesting to eat/drink. family is at bedside. call light in reach.
[2023-10-19] MEDS: MORPHINE 20MG/ML 1ML ORAL SOLUTION 25 MG SL ×2 (00:09→07:37)
[2023-10-19] MEDS: GLYCOPYRROLATE 0.2 MG/ML 1ML VIAL 0.200000000000000011 MG IV ×12 (01:05→23:04)
[2023-10-19] MEDS: HYDROMORPHONE 2MG/ML SYRINGE 1 MG IV ×4 (04:20→20:04)
--- NOTE | 2023-10-19 04:55 | PC.NURSE ---
Patient has had a comfortable shift. Patient has been requesting water every time someone goes into the room. Patient is very intuitive about the medication he is receiving and is asking each time what the medication is to insure what it is. Patient refuses pain medication when RN or anyone would offer stating he wasn't in pain. PRN medication was given only once this shift due to patient refusing to accept the medication Stating he did not need it. Finally patient took one dose of PRN medication after patient did not want to take the oral morphine due to the taste. Patient agreed that since he did not take the morphine he would take the PRN medication. Patient family was updated on the situation and they agree to allow the patient to decide if and when he wants to take pain medication. RN encouraged the patient each time pain medication was due that it was important to take the medication to help control the pain, but the patient would still refuse and state and shake his head no.
[2023-10-19] MEDS: IPRATROPIUM/ALBUTEROL 3 ML NEB IH ×3 (06:31→18:11)
[2023-10-19 06:32] VITALS: PULSE 78; PULSE 98; O2SAT 93
--- NOTE | 2023-10-19 07:50 | PC.NURSE ---
Addendum entered by Nasrin Grant RN 10/19/23 08:40: around 0800, checked on pt, alert adn oriented. pt motioned for this nurse stating i cant breath, i cant breath . o2 6l via nc, labored breathing and 02 sat low to mid 80s at the time. spoke calmly, instructed pt to breath in through his nose, out through mouth. admin am bumex, robinul, and prn ativan. pt has calmed down, dre alert. sitting up in bed. o2 sat 89-90% on 6l. Original Note: pt didnt want whole dose of morphine stating it dont taste good . gave 20mg mixed with grape juice and pt tolerated very well stating it helped.
[2023-10-19 07:59] VITALS: BP 185/117; PULSE 98; RESP 23; TEMP 37.2; O2SAT 89
[2023-10-19] MEDS: LORazepam 2MG/ML VIAL 0.5 MG IV ×2 (08:12→21:08)
[2023-10-19] MEDS: BUMETANIDE 1MG/4ML VIAL 1 MG IV ×2 (08:13→15:54)
[2023-10-19 11:30] VITALS: PULSE 82; PULSE 88; O2SAT 88
--- NOTE | 2023-10-19 15:29 | P.PN_ITS ---
Subjective *Date: 10/19/23 *Time: 15:29 Interval history: seen at bedside, appears comfortable under hospice care Exam Data for Last 24 hours Vital signs and Labs for Last 24 Hours: Temp Pulse Resp BP Pulse Ox O2 Del Method O2 Flow Rate 98.9 F 88 23 185/117 H 88 L Room Air 6 10/19/23 07:59 10/19/23 11:30 10/19/23 07:59 10/19/23 07:59 10/19/23 11:30 10/19/23 13:00 10/19/23 11:30 FiO2 100 10/15/23 20:21 I & O for Last 24 hours: Intake & Output 10/16/23 10/17/23 10/18/23 10/19/23 23:59 23:59 23:59 23:59 Intake Total 840 / 840 290 / 790 970 / 970 Output Total 1175 / 1875 700 / 700 925 / 925 1400 / 1400 Balance -335 / -1035 -700 / -700 -635 / -135 -430 / -430 Weight 150.865 kg 150 kg 150 kg Microbiology Reports for the Last 24 Hours: Microbiology 10/15/23 20:51 Blood Blood Culture - Preliminary 10/15/23 20:51 Blood Blood Culture - Preliminary Constitutional Comments: patient not examined due to being in hospice Assessment and Plan *Assessment and plan (1) Respiratory failure with hypoxia and hypercapnia: Status: Acute Qualifiers: Chronicity: acute on chronic Qualified Code(s): J96.21 - Acute and chronic respiratory failure with hypoxia; J96.22 - Acute and chronic respiratory failure with hypercapnia Category: Medical Code(s): J96.91 - Respiratory failure, unspecified with hypoxia; J96.92 - Respiratory failure, unspecified with hypercapnia (2) Pneumonia: Status: Acute Qualifiers: Laterality: bilateral Lung location: lower lobe of lung Pneumonia type: due to unspecified organism Qualified Code(s): J18.9 - Pneumonia, unspecified organism Category: Medical Code(s): J18.9 - Pneumonia, unspecified organism (3) Heart failure, unspecified: Status: Acute Qualifiers: Heart failure type: combined systolic and diastolic Heart failure chron icity: acute on chronic Qualified Code(s): I50.43 - Acute on chronic combined systolic (congestive) and diastolic (congestive) heart failure Category: Medical Code(s): I50.9 - Heart failure, unspecified (4) Chronic obstructive pulmonary disease, unspecified: Status: Acute Qualifiers: COPD type: unspecified COPD Qualified Code(s): J44.9 - Chronic obstructive pulmonary disease, unspecified Category: Medical Code(s): J44.9 - Chronic obstructive pulmonary disease, unspecified (5) Restless legs syndrome: Status: Acute Category: Medical Code(s): G25.81 - Restless legs syndrome (6) Generalized weakness: Status: Acute Category: Medical Code(s): R53.1 - Weakness (7) Declining functional status: Status: Acute Category: Medical Code(s): R53.81 - Other malaise (8) Morbid (severe) obesity due to excess calories: Status: Acute Category: Medical Code(s): E66.01 - Morbid (severe) obesity due to excess calories (9) Atrial fibrillation with RVR: Status: Acute Category: Medical Code(s): I48.91 - Unspecified atrial fibrillation Plan continue Hospice care
--- NOTE | 2023-10-19 17:49 | PC.NURSE ---
pt ax temp 100.2 md notified. VO to switch po tylenol to rectal. order sent to pharm.
[2023-10-19] MEDS: ACETAMINOPHEN 650MG SUPPOSITORY 650 MG RC (17:56)
[2023-10-19 18:12] VITALS: PULSE 84; PULSE 87; O2SAT 92
[2023-10-19 21:13] VITALS: BP 115/66; PULSE 124; RESP 24; TEMP 38.2; O2SAT 83
--- NOTE | 2023-10-19 23:12 | PC.NURSE ---
Daughter called to give up date on patient that O2 stat has stayed in the low 80s. Family stated they would come back to the hospital.
[2023-10-20] MEDS: HYDROMORPHONE 2MG/ML SYRINGE 1 MG IV ×5 (00:05→19:39)
[2023-10-20] MEDS: LORazepam 2MG/ML VIAL 0.5 MG IV ×3 (00:57→11:15)
[2023-10-20] MEDS: GLYCOPYRROLATE 0.2 MG/ML 1ML VIAL 0.200000000000000011 MG IV ×12 (01:00→23:10)
[2023-10-20 04:00] VITALS: BMI 44.8
--- NOTE | 2023-10-20 05:14 | PC.NURSE ---
Patient has been resting comfortably this shift. O2 stats have remained in the 80s this whole shift. Family came to bedside for a couple hours. Stated to call if anything else changes. Patient when alert did not want Morphine PO so instead of Morphine have been giving IV pain medication so the patient does not have to taste the medication. no other issue with this patient this shift
[2023-10-20 06:16] VITALS: PULSE 72; PULSE 76; O2SAT 83
[2023-10-20] MEDS: IPRATROPIUM/ALBUTEROL 3 ML NEB IH ×2 (06:17→10:45)
[2023-10-20] MEDS: BUMETANIDE 1MG/4ML VIAL 1 MG IV ×2 (08:45→17:45)
[2023-10-20 10:44] VITALS: PULSE 102; PULSE 96; O2SAT 83
[2023-10-20] MEDS: SODIUM CHLORIDE 0.9% 10ML VIAL 10 ML IV (11:15)
[2023-10-20] MEDS: MORPHINE 20MG/ML 1ML ORAL SOLUTION 25 MG SL (11:33)
--- NOTE | 2023-10-20 11:46 | P.PN_ITS ---
Subjective *Date: 10/20/23 *Time: 11:46 Interval history: seen at bedside, appears comfortable under hospice care Exam Data for Last 24 hours Vital signs and Labs for Last 24 Hours: Temp Pulse Resp BP Pulse Ox O2 Del Method O2 Flow Rate 100.7 F H 102 H 24 115/66 83 L Nasal Cannula 6 10/19/23 21:13 10/20/23 10:44 10/19/23 21:13 10/19/23 21:13 10/20/23 10:44 10/20/23 10:44 10/20/23 10:44 FiO2 100 10/15/23 20:21 I & O for Last 24 hours: Intake & Output 10/17/23 10/18/23 10/19/23 10/20/23 23:59 23:59 23:59 23:59 Intake Total 290 / 790 970 / 1070 100 / 100 Output Total 700 / 700 925 / 925 2300 / 2300 Balance -700 / -700 -635 / -135 -1330 / -1230 100 / 100 Weight 150 kg 150 kg 150 kg Constitutional Comments: patient not examined due to being in hospice Assessment and Plan *Assessment and plan (1) Respiratory failure with hypoxia and hypercapnia: Status: Acute Qualifiers: Chronicity: acute on chronic Qualified Code(s): J96.21 - Acute and ch ronic respiratory failure with hypoxia; J96.22 - Acute and chronic respiratory failure with hypercapnia Category: Medical Code(s): J96.91 - Respiratory failure, unspecified with hypoxia; J96.92 - Respiratory failure, unspecified with hypercapnia (2) Pneumonia: Status: Acute Qualifiers: Laterality: bilateral Lung location: lower lobe of lung Pneumonia type: due to unspecified organism Qualified Code(s): J18.9 - Pneumonia, unspecified organism Category: Medical Code(s): J18.9 - Pneumonia, unspecified organism (3) Heart failure, unspecified: Status: Acute Qualifiers: Heart failure type: combined systolic and diastolic Heart failure chronicity: acute on chronic Qualified Code(s): I50.43 - Acute on chronic combined systolic (congestive) and diastolic (congestive) heart failure Category: Medical Code(s): I50.9 - Heart failure, unspecified (4) Chronic obstructive pulmonary disease, unspecified: Status: Acute Qualifiers: COPD type: unspecified COPD Qualified Code(s): J44.9 - Chronic obstructive pulmonary disease, unspecified Category: Medical Code(s): J44.9 - Chronic obstructive pulmonary disease, unspecified (5) Restless legs syndrome: Status: Acute Category: Medical Code(s): G25.81 - Restless legs syndrome (6) Generalized weakness: Status: Acute Category: Medical Code(s): R53.1 - Weakness (7) Declining functional status: Status: Acute Category: Medical Code(s): R53.81 - Other malaise (8) Morbid (severe) obesity due to excess calories: Status: Acute Category: Medical Code(s): E66.01 - Morbid (severe) obesity due to excess calories (9) Atrial fibrillation with RVR: Status: Acute Category: Medical Code(s): I48.91 - Unspecified atrial fibrillation Plan continue Hospice care
[2023-10-20 13:28] VITALS: BP 165/86; PULSE 115; RESP 20; TEMP 38.2; O2SAT 89
[2023-10-20] MEDS: MORPHINE 2MG/ML SYRINGE 2 MG IV ×5 (13:35→23:10)
--- NOTE | 2023-10-20 14:59 | PC.NURSE ---
per daughters request, no q2 turns.
--- NOTE | 2023-10-20 15:02 | PC.NURSE ---
pts o2 on 6l nc has been has been 76-77% the last 3 hrs. pt currently resting well with no agitation, daughter and son in law at bs.
[2023-10-20] MEDS: LORazepam 2MG/ML VIAL 1 MG IV ×3 (15:43→23:10)
[2023-10-20 20:00] VITALS: BP 121/69; PULSE 64; RESP 18; TEMP 38.4; O2SAT 83
[2023-10-21] MEDS: HYDROMORPHONE 2MG/ML SYRINGE 1 MG IV (00:13)
[2023-10-21] MEDS: MORPHINE 2MG/ML SYRINGE 2 MG IV (01:27)
[2023-10-21] MEDS: GLYCOPYRROLATE 0.2 MG/ML 1ML VIAL 0.200000000000000011 MG IV (01:27)
--- NOTE | 2023-10-21 01:58 | EXP.DEATH.DS ---
Discharge Sum: Prov Provider Primary care physician: Niall Coleman MD Visit Care Team Role Provider Type Niall oCleman MD Primary Care Provider Staff Physician Cristino Hobson MD Other Providers Staff Physician Jennifer Padilla MD Other Providers Consulting Physician Mo Sutherland MD Other Providers Staff Physician SONAM Ordoñez Other Providers Physician Fence [employer] Simran Ray MD Other Providers Consulting Physician Rios Adams MD Other Providers Consulting Physician SONAM Crouch Other Providers Physician Fence [employer] Carlos Luis MD Other Providers Staff Physician Rosario Solitario APRN Other Providers Nurse Practitioner Tiffanie Simmons APRN Other Providers Nurse Practitioner Sukhdev Morales MD Emergency Provider ER Physician Satinder Patel MD Admit Provider Staff Physician Attending Provider Consults: 10/16/23 09:45 Cardiology Consult [Consult to Cardiology] [CONS] Routine Consulting Provider: Cardiology Reason For Consult: chf, worsening decline 10/16/23 11:52 Care Management Consult [Consult to Case Management] [CONS] Routine Reason For Consult: Consult Hospice Discharge Sum: Diag PCOD Cause of : Respiratory failure with hypoxia and hypercapnia Contributing Factors (1) Respiratory failure with hypoxia and hypercapnia: (2) Pneumonia: (3) Heart failure, unspecified: (4) Chronic obstructive pulmonary disease, unspecified: (5) Restless legs syndrome: (6) Generalized weakness: (7) Declining functional status: (8) Morbid (severe) obesity due to excess calories: (9) Atrial fibrillation with RVR: Discharge Sum: Summary Date and Time Date of admission: 10/15/23 22:36 Date of : 10/21/23 Time of : 01:50 Hospital Course prior to Hospital Course Information: 10/11 88-year-old male PMHx hypertension, hyperlipidemia, COPD/CHF 3 L nasal cannula, hypothyroidism, A-fib on warfarin [facility] [place] resident, brought in by EMS with shortness of breath and weakness. started on Levaquin PO today. Nursinf facilty was concerning of deterioration of his status and sent patietn for evaluation. On arrival patient was on NRB. EMS reported previously hypoxic. patient was on afib w/ RVR. Initial work up showed no leukocytosis, stable hemoglobin and platelets within normal limits. INR 2.35. VBG with normal pH, lactate 1.7. Chemistry largely nonactionable, kidney function within normal limits, glucose 156. LFTs normal. Troponin negative, BNP elevated mildly at 1510, but has been higher in the past. Chest x-ray without obvious pulmonary edema or cardiovascular cause, but does have concern for early developing pneumonia. Imaging Reviewed. Patient recently was treated oral for COVID. Discussed with the ED. medicine agreed to admit. Plan as follow: -Acute on chronic respiratory failure likely secondary to earlier pneumonia: To rule out CHF exacerbation Chronic COPD Admit patient for medical services. On continuous monitoring for unit protocol Monitor for O2 saturation. Currently on 3 L nasal cannula Started on vancomycin and ceftriaxone first dose given at the ER Will continue with Levaquin Blood culture and sputum pending Monitor for sepsis and organ dysfunction Lasix IV one-time given at the ER. Resume Bumex and furosemide p.o. 40 twice daily Echocardiogram. ER bedside cardiac ultrasound showed significantly reduced EF Repeat labs in the morning. Monitor for electrolyte imbalance -Chronic conditions: Sleep apnea., Restless leg syndrome. Morbidly obese with comorbidities, A-fib on chronic warfarin hypertension, hyperlipidemia Medication reviewed and reconciled. Pharmacy to monitor PT/INR 10/15 On exam, patient appears in mild distress. Complaining of pain. Would like his home meds. Is on high-dose opiates at home for chronic pain. 2 days since his last bowel movement per his report. Stated multiple times, he did not want to continue to go through treatment and just wanted to be comfortable and allowed to . Patient's daughter at bedside on repeat rounds. Discussion with her about goals of care and potential hospice. See advance care planning note for details. Patient on 3 L oxygen this morning. Castro placed for diuresis. Concern for CHF exacerbation. Advance care planning note: Active diagnosis: Heart failure, COPD, progressive decline, morbid obesity, and operable ventral hernia, chronic pain, spinal stenosis, depression The patient's active diagnoses are of sufficient risk that focused discussion on advanced care planning is indicated in order to allow the patient to thoughtfully consider personal goals of care; and, if situations arise that prevent the ability to personally give input, to ensure appropriate representation of their personal desires through documentation or informed surrogate decision makers. Discussion: Persons present and participating in discussion: Patient and daughter Discussion: Discussed initially with patient his goals. He states he does not want to be resuscitated. Signed DNR paperwork. Stating he is tired of trying to treat his condition and is ready to give up. Does not want to live any longer. Expressed interest in hospice. Separate discussion with daughter shortly thereafter about goals of care. Discussed concern for patient's current progressive decline. She recognizes that he is tired of continuing to treat his conditions and just wants to be comfortable. Comfort appears very important to her. Expressed concern about ability to manage his pain given his very high doses of opiate therapy. Talked about the benefits of hospice. She is open to this. Would like to have hospice come see patient. In the meantime, discussed having cardiology evaluate to assist with treatment for heart failure. She agrees with this plan. 10/16 Principal diagnosis: HFpEF, Resp Failure Interval history: 88-year-old white male in bed with conversational dyspnea. Complain of mid line pain in abdomen and back with presence of large abdominal hernia and history of spinal stenosis. Patient did have some desaturation overnight requiring Ventimask but currently on 6 L of nasal cannula oxygen. He did develop A-fib overnight with rapid ventricular response which has responded to additional metoprolol this morning with a decrease in heart rate but still around 130 bpm Patient and daughter did discuss DNR status with hospice consult yesterday with plans to proceed in this direction today. Mr. Beth had worsening clinical status overnight with increased oxygen requirement necessitating Ventimask at 1 point. In more distress this morning. Family would like to proceed with hospice. Patient cannot complete a sentence without being short of breath. Appears in significant pain. Abdomen more distended. Hospice consulted. Converted into A-fib with RVR overnight. 10/17 Chest imaging with bibasilar lateral findings concerning for CHF exacerbation versus pneumonia. Initially treated with antibiotics and diuresis. Cardiology was consulted. Discussed adjustments to regimen for A-fib. In light of patient's progressive decline however, family transitioned to hospice care on 10/17/2023. Continuing comfort care with medications for pain and agitation. imminent. Hospice assisting. Continues to require inpatient management for palliative care. Problems addressed as follows: -Acute on chronic respiratory failure likely secondary to earlier pneumonia versus CHF exacerbation - Chronic COPD -A-fib with RVR Given patient's progressive decline, family has elected to transition to hospice care 10/17. Summary Details: called from bedside nurse to pronounce patient. patient DNR/DNI on inpatient hospice care, on my assessment patient found with no pulse, no respirations, no heart sounds. Family notified. TOD 01:50am. Additional Data Confirmation of as documented by pronouncing clinician: no pulse, no respirations, no heart sounds and pupils fixed and dilated Family: contacted Additional persons at bedside: other Attending/PCP notified?: No Attending physician: Satinder Patel MD Was code activated?: No Autopsy requested?: No property insurance claims examiner notified?: Yes Organ bank notified?: Yes Advance directives: Yes Hospice patient?: Yes
--- NOTE | 2023-10-21 02:51 | PC.NURSE ---
This RN noted pt HR dropping to 50-60, O2 70%. Daughter was notified of patient change of status at 0144. mail order clerk notified this RN that pt HR was now in 30s. On pt assessment, pt breathing very shallow. Breathing stopped and RN auscultated pt, no respirations and no heart rate noted. MD called to bedside. TOD 0150. 0226 Daughter arrives to hospital, notified of pt status. 0234 Callled MIKAELA, pt ruled out. , Silvia Galeano 0251 Called [facility] per family request. States they will arrive shortly. Family updated.
--- NOTE | 2023-10-21 03:13 | PC.NURSE ---
Notified [facility] of pt status
--- NOTE | 2023-10-21 04:00 | PC.NURSE ---
home at bedside at this time.
--- NOTE | 2023-10-21 04:02 | PC.NURSE ---
[facility] here to transport at 4:00.
== END 2023-10-21 04:07 | disposition expired | DRG 193 ==
LOC: ER 20:31 → 2ND 21:41
PROVIDERS: Nurse Practitioner Family; Admitting Provider Internal Medicine Adolescent Medicine; Emergency Provider Emergency Medicine; PCP Family Medicine; Visit Provider Internal Medicine Adolescent Medicine
DX: J18.9 Pneumonia, unspecified organism (principal); I50.33 Acute on chronic diastolic (congestive) heart failure; J96.21 Acute and chronic respiratory failure with hypoxia; J96.22 Acute and chronic respiratory failure with hypercapnia; I48.20 Chronic atrial fibrillation, unspecified; Z68.41 Body mass index [BMI] 40.0-44.9, adult; J44.9 Chronic obstructive pulmonary disease, unspecified; G25.81 Restless legs syndrome; R53.1 Weakness; R53.81 Other malaise; E66.01 Morbid (severe) obesity due to excess calories; Z51.5 Encounter for palliative care; Z79.01 Long term (current) use of anticoagulants; I25.10 Atherosclerotic heart disease of native coronary artery without angina pectoris; G47.33 Obstructive sleep apnea (adult) (pediatric); F32.9 Major depressive disorder, single episode, unspecified; Z99.81 Dependence on supplemental oxygen; E03.9 Hypothyroidism, unspecified; Z87.891 Personal history of nicotine dependence; F39 Unspecified mood [affective] disorder; I11.0 Hypertensive heart disease with heart failure
CPT/HCPCS: 36415; 71045; 80053; 82803; 83605; 83735; 83880; 84484; 85025; 85610; 87040; 93005; 93306; 94640; 94761; 97163; 97166; 99291; J0696; J1956; J2405; J3370; J3475